=== PATIENT | female | born 1965 | race Caucasian/White ===

== ENCOUNTER 2018-02-08 12:05 | Inpatient (IN) ==
[2018-02-08] MEDS ORDERED: ALPRAZolam 0.25 MG TABLET PO PRN (19:50)
[2018-02-08] MEDS ORDERED: Sennosides/Docusate Sodium TABLET PO PRN (19:50)
[2018-02-08 20:56] LABS: INR 1.1; Prothrombin Time 12.3 Seconds (9.4-12.1)
[2018-02-08] MEDS: Vancomycin Oral Soln 125 MG/2.5 ML UDC PO SCH (21:42)
[2018-02-09] MEDS: *HR* Heparin 5,000 UNIT/ML VIAL SQ SCH ×2 (05:10→18:49)
[2018-02-09 05:52] LABS: Basophils % 0.3 %; Eosinophils % 0.5 %; Hematocrit 35.5 % (35.3-44.9); Hemoglobin 11.9 g/dL (11.5-15.4); Lymphocytes # 2.8 K/mcL (0.6-4.6); Mean Corpuscular HGB Conc 33.5 g/dL (31.6-35.5); Mean Corpuscular Hemoglobin 29.7 pg (28.0-33.3); Mean Corpuscular Volume 88.5 fL (83.0-100.0); Mean Platelet Volume 8.3 fL (9.4-12.4); Monocytes # 0.5 K/mcL (0.0-1.3); Monocytes % 5.8 %; Neutrophils # 5.1 K/mcL (1.6-8.9); Platelet Count 284 K/mcL (140-400); Red Blood Count 4.01 M/mcL (3.82-4.97); Red Cell Distribution Width 13.1 % (11.5-14.5); Segmented Neutrophils % 59.4 %
[2018-02-09 06:01] LABS: INR 1.1
[2018-02-09 06:04] LABS: Activated Partial Thrombo Time 29.1 Seconds (26.0-36.0)
[2018-02-09 06:10] LABS: BUN/Creatinine Ratio 31 (6-26); Blood Urea Nitrogen 15 mg/dL (6-20); Calcium 9.4 mg/dL (8.6-10.3); Carbon Dioxide 24 mEq/L (23-29); Chloride 103 mEq/L (98-107); Glucose 100 mg/dL (70-105); Osmolality,Calculated 285 (280-300); Potassium 3.4 mEq/L (3.5-5.1); Sodium 137 mEq/L (136-145); eGFR For Non-African Americans > 60 (> 60)
[2018-02-09] MEDS: Vancomycin Oral Soln 125 MG/2.5 ML UDC PO SCH ×4 (09:47→20:37)
--- NOTE | 2018-02-09 15:47 | Internal Med History&Physical ---
Date of Encounter: 02/09/18 Time of Encounter: 15:45 Assessment and Plan (1) SAH (subarachnoid hemorrhage) Current visit: Yes Status: Acute PT , OT and ST to eval and treat. will follow progress. f/u with neuro as scheduled. (2) DVT prophylaxis Current visit: Yes Status: Acute continue heparin Internal Medicine - H&P: HPI Admitted From: Hospital to Hospital Transfer Plans for Post Hospital Care: Home History of present illness: Ms. Karimi is a 52 year old female admitted to inpatient rehab unit s/p subarachnoid hemorrhage s/p coiling. She woke up from a nap on 01/14 with worst RODRIGUEZ of life. had confusion, nausea and photophobia, went to [place] ED on 01/[address] showed a SAH bleed-intra axial intra ventricular. then transfered to [facility]. underwent coiling procedure on 01/18. 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 participating well with therapy. kaylee to be removed on 02/13. f/u with Dr Andrews (neurology) smoker of 39 pack years. denies RODRIGUEZ, fever, chills, NVD, SOB or chest pain. no change in vision. has delayed response to questions. Past Med Surg Social Fam HX - Past Medical History Medical history: diabetes, hypertension Additional medical history: freq UTI's, ruptured aneurysm, subaracnoid hemorrhage Psychiatric history: anxiety, depression - Past Surgical History Surgical History: Additional surgical history: wisdom teeth, brain surgery - Social History Smoking Status: Current every day smoker Packs per day: 1 Smokeless Tobacco Status: Yes Alcohol use: none Drug use: none - Family History Mother Adopted: No Family Member Ethnicity: Non- Living Status: Still Living Hx Family Cardiac Disorders: Yes (HTN) Hx Family Respiratory Disorders: No Hx Family Cancer: No Hx Family GI Disorders: No Hx Family Genitourinary Disorders: No Hx Family Endocrine Disorder: Yes (DM) Hx Family Musculoskeletal Disorders: No Hx Family Neuromuscular Disorders: No Hx Family Neurologic Disorders: No Hx Family HEENT Disorders: No Hx Family Autoimmune Disorders: No Hx Family Reproductive Disorders: No Hx Family Psychosocial Disorders: Yes (Bipolar, depression) Hx Family Medical Disorders: No Father Adopted: No Family Member Ethnicity: Non- Hx Family Cardiac Disorders: Yes (HTN, heart disease) Hx Family Respiratory Disorders: No Hx Family Cancer: Yes (Colon cancer) Hx Family GI Disorders: No Hx Family Genitourinary Disorders: Yes (Kidney Disease) Hx Family Endocrine Disorder: No Hx Family Musculoskeletal Disorders: No Hx Family Neuromuscular Disorders: No Hx Family Neurologic Disorders: No Hx Family HEENT Disorders: No Hx Family Autoimmune Disorders: No Hx Family Reproductive Disorders: No Hx Family Psychosocial Disorders: No Hx Family Medical Disorders: No Internal Medicine - H&P: Meds ALPRAZolam [Xanax 0.25 MG Tablet] 0.25 mg PO TID PRN 02/08/18 [History] Sennosides/Docusate Sodium [Senna-S Tablet] 1 each PO BID 02/08/18 [History] Venlafaxine [Effexor] 75 mg PO BID 02/08/18 [History] 3 Allergy/AdvReac Type Severity Reaction Status Date / Time bee venom protein (honey bee) AdvReac See Verified 02/08/18 19:48 Comments Sulfa (Sulfonamide AdvReac See Verified 02/08/18 19:48 Antibiotics) Comments All Systems PM: A 10-system review of systems was performed and is negative for pertinent findings except as documented above in the HPI. - Constitutional Constitutional: no chills, no fever(s), no night sweats - EENT Eyes: no change in vision, no discharge, no pain, no photophobia Ears: no ear discharge, no ear pain, no tinnitus Nose, mouth and throat: no dysphagia, no nasal discharge, no neck pain, no sore throat - Cardiovascular Cardiovascular ROS IM: no chest pain, no diaphoresis, no dyspnea, no lightheadedness, no palpitations, no syncope - Respiratory Respiratory: no cough, no dyspnea, no wheezing, no excessive phlegm production - Gastrointestinal Gastrointestinal: no abdominal pain, no diarrhea, no hematemesis, no hematochezia, no melena, no nausea, no vomiting - Genitourinary Genitourinary: no change in urinary stream, no dysuria, no flank pain, no hematuria - Musculoskeletal Musculoskeletal ROS IM: no numbness, no tingling - Integumentary Integumentary IM: no rash, no unusual bruising - Neurological Neurological ROS: no confusion, no convulsions, no focal weakness, no numbness, no tingling, no tremor(s) - Hematologic/Lymphatic Hematologic/Lymphatic: no easy bruising - Constitutional Vitals: Temp Pulse Resp BP Pulse Ox 98.2 F 74 16 120/72 95 02/09/18 12:00 02/09/18 12:00 02/09/18 12:00 02/09/18 12:00 02/09/18 12:00 General appearance: Present: A&O X 2, pleasant Exam: delayed responses to questions. - Head Head exam: Present: atraumatic, normocephalic - Eye Eye exam: Present: PERRL, conjuntiva pink, sclera anicteric Pupils: Present: PERRL - Neck Neck exam general surgery: Present: supple, trachea midline. Absent: lymphadenopathy - Respiratory Respiratory exam: Present: CTAB. Absent: accessory muscle use, rales, rhonchi, wheezes - Cardiovascular Cardiovascular exam: Present: RRR, +S1, +S2. Absent: diastolic murmur, gallop, rubs, systolic murmur - GI/Abdominal GI/Abdominal exam: Present: normal bowel sounds, soft, no peritoneal signs. Absent: distended, tenderness - Extremities Exam Extremities exam: Present: warm, radial pulses palpable and symmetrical. Absent : calf tenderness, cyanotic, pedal edema Additional comments: left lateral lean, strength 5/5 right and and 4/5 left hand, not raising left shoulder, states she is tired. LLE unable to move with RLE strength 3/5. able to perform wrist flexion and extension BUE - Incison Comments: incisions with kaylee to scalp, no drainage. - Neurological Exam Neurological exam: Present: CN II-XII intact, oriented X3, no focal deficits. Absent: pronater drift, facial droop, speech deficit - Skin Skin exam: Present: dry, intact Internal Med - H&P Results - Labs CBC & Chem 7: 02/09/18 05:05 02/09/18 05:05 Labs: Short CBC 02/09/18 Range/Units 05:05 WBC 8.6 (4.3-11.1) K/mcL Hgb 11.9 (11.5-15.4) g/dL Hct 35.5 (35.3-44.9) % Plt Count 284 (140-400) K/mcL Neutrophils # 5.1 (1.6-8.9) K/mcL BMP 02/09/18 05:05 Sodium 137 Potassium 3.4 L Chloride 103 Carbon Dioxide 24 BUN 15 Creatinine 0.48 L Glucose 100 Calcium 9.4 - VTE Documentation of Mechanical Device: Graduated compression elastic hosiery
[2018-02-10] MEDS: *HR* Heparin 5,000 UNIT/ML VIAL SQ SCH ×2 (05:52→17:13)
[2018-02-10] MEDS: Vancomycin Oral Soln 125 MG/2.5 ML UDC PO SCH ×4 (10:01→20:42)
--- NOTE | 2018-02-10 15:25 | Internal Med Progress Note ---
Date of Encounter: 02/10/18 Time of Encounter: 15:22 - Assessment and plan (1) SAH (subarachnoid hemorrhage) Current Visit: Yes Status: Acute Assessment and plan: She has a follow-up apparently on February 13 and will discuss removal of kaylee either now or at that time, with nursing. We will continue therapies as planned and will await further assessment by physical medicine. (2) Anxiety and depression Current Visit: Yes Status: Acute Assessment and plan: We will continue current medications. (3) C. difficile colitis Current Visit: Yes Status: Acute Assessment and plan: Doing better as per history. Will continue to follow. - Subjective Interval history: Patient is still an unusual affect and easily distracted, reading a newspaper anicteric times ignores me. She does not have any acute problems and is enjoying therapy. She is feeling like her bowel movements are becoming more formed and she denies abdominal pain or other change in bowel habits. She has no urinary symptoms or problems. Patient has no complaint of chest discomfort, dyspnea, orthopnea, palpitations, nausea or vomiting, constipation or diarrhea, other changes in bowel habits, difficulty with urination, rash or itching, or other new complaints, except as mentioned above. Review of systems is otherwise negative. - Constitutional Vitals: Temp Pulse Resp BP Pulse Ox 98.6 F 76 16 138/76 93 02/10/18 07:11 02/10/18 07:11 02/10/18 07:11 02/10/18 07:11 02/10/18 07:11 General appearance: Present: A&O X 2, pleasant Exam: Examination: (Except as mentioned above): General: In no apparent distress. Alert and oriented 3. Nondiaphoretic. Head: Atraumatic and normocephalic. I see no facial asymmetry, at this time. Respiratory: No use of accessory muscles. Lungs are clear throughout. Normal airflow. Cardiovascular: Regular rate and rhythm without murmur appreciated. Abdomen: Bowel sounds are normal. No hepatosplenomegaly mass or tenderness appreciated. Obese and therefore difficult to palpate deeply. Patient is examined upright in chair and this also limits exam. Extremities: No cyanosis clubbing or edema. Neurologic: She still has minimal if any left upper extremity weakness. She states that sensation is normal lower extremity but she has dense paresis of lower extremity. I still wonder if this is functional or at least partially so. Skin: Warm and non-diaphoretic with no new lesions noted. She still has kaylee in that her scalp and tells me that these will be removed on . Internal Medicine: Result - Labs CBC & Chem 7: 02/09/18 05:05 02/09/18 05:05 - ABG Interpretation ABG results: PT/INR, D-dimer PT 12.0 Seconds (9.4-12.1) 02/09/18 05:05 - VTE Documentation of Mechanical Device: Graduated compression elastic hosiery Consult Discharge Plan - Plan Referrals: Tobin Granado MD [Primary Care Provider] - Samantha Recinos [Family Provider] -
[2018-02-11] MEDS: *HR* Heparin 5,000 UNIT/ML VIAL SQ SCH ×2 (04:53→17:39)
[2018-02-11 05:45] LABS: BUN/Creatinine Ratio 25 (6-26); Blood Urea Nitrogen 11 mg/dL (6-20); Calcium 9.4 mg/dL (8.6-10.3); Carbon Dioxide 24 mEq/L (23-29); Chloride 103 mEq/L (98-107); Glucose 114 mg/dL (70-105); Osmolality,Calculated 282 (280-300); Potassium 3.8 mEq/L (3.5-5.1); Sodium 136 mEq/L (136-145); eGFR For Non-African Americans > 60 (> 60)
[2018-02-11 07:27] VITALS: BP 118/60
[2018-02-11] MEDS: Vancomycin Oral Soln 125 MG/2.5 ML UDC PO SCH ×3 (08:28→17:39)
[2018-02-11] MEDS ORDERED: ALPRAZolam 0.25 MG TABLET PO SCH (09:00)
--- NOTE | 2018-02-11 09:08 | Internal Med Progress Note ---
Date of Encounter: 02/11/18 Time of Encounter: 09:06 - Assessment and plan (1) Anxiety and depression Current Visit: Yes Status: Chronic Assessment and plan: stable takes Xanax regular dose has flat affect . stable no thoughts of hurting herself or killing someone else stable (2) C. difficile colitis Current Visit: Yes Status: Acute Assessment and plan: on oral Vanc stool seems to be getting firm . Will follow (3) SAH (subarachnoid hemorrhage) Current Visit: Yes Status: Acute Assessment and plan: Bleeding intra cranial s/p evacuation subarchnoid stable no new change in mental status or neurologically . Getting her PT - Subjective Interval history: Cross coverage seems to be doing fine still has some what loose stools no fever or chills denines any other complains has flat affect - Constitutional Vitals: Temp Pulse Resp BP Pulse Ox 98.4 F 89 15 118/60 95 02/11/18 07:26 02/11/18 07:26 02/11/18 07:26 02/11/18 07:26 02/11/18 07:26 General appearance: Present: A&O X 2, pleasant, answers questions appropriately - Head Additional comments: surgical kaylee stable - Eye Eye exam: Present: EOMI, PERRL Pupils: Present: PERRL - Neck Neck exam general surgery: Present: supple. Absent: tenderness, nuchal rigidity - Respiratory Respiratory exam: Present: CTAB. Absent: chest wall tenderness, decreased breath sounds, respiratory distress, rhonchi, stridor, wheezes, tachypnea - Cardiovascular Cardiovascular exam: Present: RRR, +S1, +S2. Absent: clicks, distant heart sounds, irregular rhythm, JVD - GI/Abdominal GI/Abdominal exam: Present: normal bowel sounds, soft. Absent: distended, firm , guarding, rebound, rigid, tenderness, no peritoneal signs - Extremities Exam Extremities exam: Absent: mottling, pedal edema, tenderness - Incison Incision: Present: clean and dry, intact. Absent: red, swollen, inflamed, erythema - Neurological Exam Neurological exam: Present: alert, CN II-XII intact. Absent: facial droop, speech deficit Additional comments: there is some decrease in her strength on left side but able to move both limbs upper and lower some what flat affect but answers questions appropriately Internal Medicine: Result - Labs CBC & Chem 7: 02/09/18 05:05 02/11/18 04:55 Labs: BMP 02/11/18 04:55 Sodium 136 Potassium 3.8 Chloride 103 Carbon Dioxide 24 BUN 11 Creatinine 0.44 L Glucose 114 H Calcium 9.4 - ABG Interpretation ABG results: PT/INR, D-dimer PT 12.0 Seconds (9.4-12.1) 02/09/18 05:05 - VTE Documentation of Mechanical Device: Graduated compression elastic hosiery Consult Discharge Plan - Plan Referrals: Tobin Granado MD [Primary Care Provider] - Samantha Recinos [Family Provider] -
[2018-02-11] MEDS ORDERED: Acetaminophen 325 MG TABLET PO PRN (09:28)
[2018-02-11] MEDS ORDERED: ALPRAZolam 0.25 MG TABLET PO PRN (12:18)
--- NOTE | 2018-02-12 09:01 | Discharge Summary ---
Orders not resulted at time of discharge: Pending orders 02/13/18 04:00 Activated Partial Thrombo Time [COAG] MO Basic Metabolic Panel MO Complete Blood Count [HEME] MO 02/20/18 04:00 Activated Partial Thrombo Time [COAG] MO Basic Metabolic Panel MO Complete Blood Count [HEME] MO 02/27/18 04:00 Activated Partial Thrombo Time [COAG] MO Basic Metabolic Panel MO Complete Blood Count [HEME] MO 03/06/18 04:00 Activated Partial Thrombo Time [COAG] MO Basic Metabolic Panel MO Complete Blood Count [HEME] MO 03/13/18 04:00 Activated Partial Thrombo Time [COAG] MO Basic Metabolic Panel MO Complete Blood Count [HEME] MO Date of Encounter: 02/12/18 (pt left ta but note was written next day ) Time of Encounter: 08:59 - Discharge Diagnosis (1) Anxiety and depression Priority: Secondary Status: Chronic Comments: stable on meds (2) C. difficile colitis Priority: Secondary Status: Acute Comments: on oral meds stable and improving (3) SAH (subarachnoid hemorrhage) Priority: Secondary Status: Acute Comments: ICH, stable (4) DVT (deep venous thrombosis) Priority: Primary Status: Acute Comments: Pt developed acute DVT left Popletial and tibial veins. Due to recent Intra cranial bleed and coil placmemnt , anticoagulation could not be started . She was transferred to [facility] for placement of IVC. if she comes back by 8 PM her admission will continue otherwise she will be discharged . Pt was aware of this new development Qualifiers: DVT location: lower extremity Affected thrombotic vein of extremity: popliteal Qualified Code(s): I82.431 - Acute embolism and thrombosis of right popliteal vein Hospital course: Ms. Karimi is a 52 year old female she started complaining of pain in her left leg and calf , no swelling . Doppler showed acute DVT . She denies any fever or chills no SOB . she was actively getting her PT for her ICH. she was transferred to [place] for IVC filter placement due to contraindication for anticoagulation. At the time of trasnfer she was stable without any complains of SOB or chest pain - Time Spent with Patient Total time spent providing and/or coordinating discharge services: - Discharge Medications Home Medications: ALPRAZolam [Xanax 0.25 MG Tablet] 0.25 mg PO TID PRN 02/08/18 [History] Sennosides/Docusate Sodium [Senna-S Tablet] 1 each PO BID 02/08/18 [History] Venlafaxine [Effexor] 75 mg PO BID 02/08/18 [History] Allergies/Adverse Reactions: 3 Allergy/AdvReac Type Severity Reaction Status Date / Time bee venom protein (honey bee) AdvReac See Verified 02/08/18 19:48 Comments Sulfa (Sulfonamide AdvReac See Verified 02/08/18 19:48 Antibiotics) Comments Date of admission: 02/08/18 19:04 Primary care physician: Tobin Granado MD Consults: 02/08/18 19:51 Consult to Occupational Therapy [CONS] Routine Comment: Evaluate, develop and implement POC Reason for Consult: s/p cva Does patient have active BEDREST order?: No Is patient medically & hemodynamically stable?: Yes Patient assessed for mobility or mobilized this visit?: Yes Consult to Physical Medicine/Rehab [CONS] Routine Reason for Consult: s/p cva Call Completed: Yes Consult to Physical Therapy [CONS] Routine Comment: Evaluate, develop and implement POC Reason for Consult: s/p cva Does patient have active BEDREST order?: No Is patient medically & hemodynamically stable?: Yes Patient assessed for mobility or mobilized this visit?: Yes Consult to Recreational Therapy [CONS] Routine Comment: Evaluate, develop and implement POC Consult to [employer] [CONS] Routine Reason for SW Consult: s/p cva. d/c follow up needed. Consult to Speech Therapy [CONS] Routine Comment: Evaluate, develop and implement POC Reason for Consult: s/p cva Call Completed: Yes Discharging clinician: Belkis Medel Anticipated date of discharge: 02/12/18 - Constitutional Vitals: Temp Pulse Resp BP Pulse Ox 98.4 F 89 15 118/60 95 02/11/18 07:26 02/11/18 07:26 02/11/18 07:26 02/11/18 07:26 02/11/18 07:26 General appearance: Present: A&O X 2, pleasant, answers questions appropriately - Head Additional comments: kaylee on incision please note that her examination is from before her departure and discharge to [facility] . Documentation was done later - Eye Eye exam: Present: EOMI, PERRL. Absent: scleral icterus, conjuntiva pink Pupils: Present: PERRL - Neck Neck exam general surgery: Absent: tenderness, nuchal rigidity - Respiratory Respiratory exam: Present: CTAB. Absent: respiratory distress, stridor, wheezes - Cardiovascular Cardiovascular exam: Present: RRR, +S1, +S2. Absent: JVD - GI/Abdominal GI/Abdominal exam: Present: normal bowel sounds, soft. Absent: distended, rebound, rigid - Extremities Exam Extremities exam: Present: tenderness Additional comments: left calf and leg no swelling or redness - Neurological Exam Neurological exam: Present: altered, CN II-XII intact, oriented X3. Absent: facial droop, speech deficit Additional comments: flat affect. mild weakness on left side otherwsie no clear focal deficit noted - Patient Status Disposition: Transfer Hospital Swing Bed Functional capacity at discharge: bed bound Overall status at discharge: other (tranfered to [facility]) - Discharge Instructions Follow Up With: Tobin Granado MD [Primary Care Provider] - Samantha Recinos [Family Provider] - Additional Instructions: pt was discharged to [facility] - Diet and Activity Activity: other Diet: regular diet - VTE Documentation of Mechanical Device: Graduated compression elastic hosiery
== END 2018-02-11 19:37 | disposition other institution (70) | DRG 57 ==
LOC: INPGRE 19:04

== ENCOUNTER 2018-02-15 15:03 | Inpatient (IN) ==
--- NOTE | 2018-02-16 13:03 | Internal Med History&Physical ---
Date of Encounter: 02/16/18 Time of Encounter: 12:52 Assessment and Plan (1) SAH (subarachnoid hemorrhage) Current visit: No Status: Acute Patient is readmitted to this facility for deconditioning secondary to subarachnoid hemorrhage. Patient was transferred from this facility to [facility] for evaluation and treatment after she was found to have a left leg DVT and was going to require anticoagulation. Patient has returned to this facility after being started on Xerelto. Patient's neurological exam appears unchanged since her last admission here. Patient continues to have left upper arm paresis, showing 4/5 muscle strength, which was more prominent proximal. Patient's left leg remains flaccid with 0/5 muscle strength and patient with complaints of a lower sensation to the entire leg, primarily to sharp sensation. Patient is to be reevaluated by physical therapy with recommendations. We will continue with current pain of care and medications. Patient currently denies any discomforts. (2) Anxiety and depression Current visit: No Status: Chronic Patient continues to have a flat affect during interview, but was appropriate with all answers. Patient also noted to have poor attention span been easily distracted during exam. We will continue on her current medications. (3) DVT (deep venous thrombosis) Current visit: Yes Status: Acute Left leg remains slightly swollen. No tenderness. Patient continues on Xarelto at this time. Patient denies any dyspnea or chest discomfort Qualifiers: DVT location: lower extremity Affected thrombotic vein of extremity: popliteal Chronicity: acute Laterality: left Qualified Code(s): I82.432 - Acute embolism and thrombosis of left popliteal vein (4) Pulmonary congestion Current visit: Yes Status: Acute Lungs are clear throughout upper kaplan but noted to have fine basilar rales posteriorly. Most likely from an activity. Patient will be started on a incentive spirometer and mobilized by physical therapy. Patient denies any dyspnea or productive cough. Internal Medicine - H&P: HPI Chief complaint: SAH Admitted From: Intrahospital Transfer Plans for Post Hospital Care: Home History of present illness: Ms. Karimi is a 52 year old female admitted to inpatient rehab unit s/p subarachnoid hemorrhage s/p coiling. She woke up from a nap on 01/14 with worst RODRIGUEZ of life. had confusion, nausea and photophobia, went to [facility] ED on 01/[address] showed a SAH bleed-intra axial intra ventricular. then transfered to [facility]. underwent coiling procedure on 01/18. 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 Patient was then transferred to this facility for rehab due to deconditioning and LLE plegia secondary to her SAH. Patient was progressing well with physical therapy, but it was noted that she developed left leg swelling. Venous Doppler showed that she had a DVT to the left leg. Due to her recent subarachnoid hemorrhage and the need for anticoagulation she was transferred to [facility] for further evaluation and treatment per neurosurgery. Patient was evaluated and started on Xarelto while at [place]. Patient has returned to this facility for further rehabilitation. Patient continues to show a deficit to the left lower extremity which is flaccid and patient states a mild decrease sensitivity to the entire leg. Also has paresis to the LUE with proximal flex/ext at 4/5, but distal strength is near normal with hand grasp and extension. Noted slight tremor to LUE, which she states she has had since her SAH. Patient continues to have Holly catheter in place with reports from [place] that patient experienced urinary retention and was not able to have her Holly catheter discontinued. Patient continues to have a flat type affect during interview, but was able to answer all questions appropriately. Hx of depression. Patient denies any discomforts or shortness of breath. Patient denies any visual changes. Recent Hx of C. diff, but denies any diarrhea. Past Med Surg Social Fam HX - Past Medical History Medical history: diabetes, hypertension Additional medical history: freq UTI's, ruptured aneurysm, subaracnoid hemorrhage Psychiatric history: anxiety, depression - Past Surgical History Surgical History: Additional surgical history: wisdom teeth, brain surgery - Social History Smoking Status: Current every day smoker Smokeless Tobacco Status: Yes Alcohol use: none Drug use: none - Family History Mother Adopted: No Family Member Ethnicity: Non- Living Status: Still Living Hx Family Cardiac Disorders: Yes (HTN) Hx Family Respiratory Disorders: No Hx Family Cancer: No Hx Family GI Disorders: No Hx Family Endocrine Disorder: Yes (DM) Hx Family Neuromuscular Disorders: No Hx Family Neurologic Disorders: No Hx Family HEENT Disorders: No Hx Family Autoimmune Disorders: No Father Adopted: No Family Member Ethnicity: Non- Hx Family Cardiac Disorders: Yes (HTN, heart disease) Hx Family Respiratory Disorders: No Hx Family Cancer: Yes (Colon cancer) Hx Family GI Disorders: No Hx Family Endocrine Disorder: No Hx Family Neuromuscular Disorders: No Hx Family Neurologic Disorders: No Hx Family HEENT Disorders: No Hx Family Autoimmune Disorders: No Internal Medicine - H&P: Meds ALPRAZolam [Xanax 0.25 MG Tablet] 0.25 mg PO TID PRN 02/08/18 [History] Sennosides/Docusate Sodium [Senna-S Tablet] 1 each PO BID 02/08/18 [History] Venlafaxine [Effexor] 75 mg PO BID 02/08/18 [History] 3 Allergy/AdvReac Type Severity Reaction Status Date / Time bee venom protein (honey bee) AdvReac See Verified 02/08/18 19:48 Comments Sulfa (Sulfonamide AdvReac See Verified 02/08/18 19:48 Antibiotics) Comments All Systems PM: A 10-system review of systems was performed and is negative for pertinent findings except as documented above in the HPI. - Constitutional Constitutional: as per HPI, no chills, no fever(s), no night sweats - EENT Eyes: no change in vision, no discharge, no pain, no photophobia Ears: no ear discharge, no ear pain, no tinnitus Nose, mouth and throat: no dysphagia, no nasal discharge, no neck pain, no sore throat - Cardiovascular Cardiovascular ROS IM: no chest pain, no diaphoresis, no dyspnea, no lightheadedness, no palpitations, no syncope - Respiratory Respiratory: as per HPI, no cough, no dyspnea, no wheezing, no excessive phlegm production - Gastrointestinal Gastrointestinal: no abdominal pain, no diarrhea, no hematemesis, no hematochezia, no melena, no nausea, no vomiting - Genitourinary Genitourinary: no change in urinary stream, no dysuria, no flank pain, no hematuria - Musculoskeletal Musculoskeletal ROS IM: no numbness, no tingling - Integumentary Integumentary IM: no rash, no unusual bruising - Neurological Neurological ROS: as per HPI, numbness, paresthesias, weakness, no confusion, no convulsions, no focal weakness, no tingling, no tremor(s) - Psychiatric Psychiatric: as per HPI - Hematologic/Lymphatic Hematologic/Lymphatic: no easy bruising - Constitutional General appearance: Present: A&O X 3, pleasant, answers questions appropriately - Head Head exam: Present: atraumatic, normocephalic - Eye Eye exam: Present: PERRL, conjuntiva pink, sclera anicteric Pupils: Present: PERRL - Neck Neck exam general surgery: Present: supple, trachea midline. Absent: lymphadenopathy - Respiratory Respiratory exam: Present: rales Additional comments: Patient noted to have fine posterior basilar rales heard, otherwise her lungs were clear to auscultation. History effort appears relaxed while at rest. No productive cough. - Cardiovascular Cardiovascular exam: Present: RRR, +S1, +S2. Absent: diastolic murmur, gallop, rubs, systolic murmur - GI/Abdominal GI/Abdominal exam: Present: normal bowel sounds, soft, no peritoneal signs. Absent: distended, tenderness - Additional comments: Holly catheter in place with clear yellow urine received - Extremities Exam Extremities exam: Present: warm, radial pulses palpable and symmetrical. Absent : calf tenderness, cyanotic, pedal edema Additional comments: left leg appears slight swollen with nonpitting edema - Neurological Exam Neurological exam: Present: CN II-XII intact, oriented X3. Absent: pronater drift, facial droop, speech deficit Additional comments: LUE with MS 4/5 on flex/ext and noted tremors. Noted increased strength on LUE distally, but remains +4/5. LLE with 0/5 MS for ext/flex at proximally and distally. Decreased sensation to the entire left leg with sharp sensation with no change per dermatone. - Skin Skin exam: Present: dry, intact
[2018-02-16] MEDS: Sennosides/Docusate Sodium TABLET PO SCH (20:52)
[2018-02-16] MEDS: *HR* Rivaroxaban 15 MG TABLET PO SCH (20:52)
[2018-02-17 05:24] LABS: Basophils % 0.3 %; Eosinophils # 0.1 K/mcL (0.0-0.6); Eosinophils % 0.5 %; Hematocrit 32.3 % (35.3-44.9); Hemoglobin 10.9 g/dL (11.5-15.4); Immature Granulocytes % 1.1 % (0-4); Lymphocytes # 1.7 K/mcL (0.6-4.6); Lymphocytes % 14.1 %; Mean Corpuscular HGB Conc 33.7 g/dL (31.6-35.5); Mean Corpuscular Hemoglobin 30.2 pg (28.0-33.3); Mean Corpuscular Volume 89.5 fL (83.0-100.0); Mean Platelet Volume 8.6 fL (9.4-12.4); Monocytes # 1.2 K/mcL (0.0-1.3); Monocytes % 9.8 %; Platelet Count 286 K/mcL (140-400); Red Blood Count 3.61 M/mcL (3.82-4.97); Red Cell Distribution Width 13.6 % (11.5-14.5); Segmented Neutrophils % 74.2 %
[2018-02-17 05:28] LABS: Neutrophils # 9.1 K/mcL (1.6-8.9)
[2018-02-17 05:33] LABS: INR 1.7; Prothrombin Time 19.7 Seconds (9.4-12.1)
[2018-02-17 05:46] LABS: Alanine Aminotransferase 37 Units/L (7-52); Albumin 3.6 g/dL (3.5-5.7); Alkaline Phosphatase 101 Units/L (34-104); Aspartate Amino Transferase 20 Units/L (13-39); BUN/Creatinine Ratio 21 (6-26); Bilirubin,Total 0.8 mg/dL (0.3-1.0); Blood Urea Nitrogen 12 mg/dL (6-20); Calcium 9.6 mg/dL (8.6-10.3); Carbon Dioxide 24 mEq/L (23-29); Chloride 101 mEq/L (98-107); Globulin 3.5 g/dL (2.4-3.5); Glucose 122 mg/dL (70-105); Magnesium 2.2 mg/dL (1.6-2.6); Osmolality,Calculated 285 (280-300); Potassium 3.7 mEq/L (3.5-5.1); Sodium 137 mEq/L (136-145); Total Protein 7.1 g/dL (6.4-8.9); eGFR For Non-African Americans > 60 (> 60)
[2018-02-17] MEDS: *HR* Rivaroxaban 15 MG TABLET PO SCH ×2 (09:39→20:34)
[2018-02-17] MEDS: Sennosides/Docusate Sodium TABLET PO SCH ×2 (09:40→20:35)
[2018-02-17] MEDS: ALPRAZolam 0.25 MG TABLET PO PRN (10:04)
--- NOTE | 2018-02-17 10:40 | Internal Med Progress Note ---
Date of Encounter: 02/17/18 Time of Encounter: 10:37 - Assessment and plan (1) SAH (subarachnoid hemorrhage) Current Visit: Yes Status: Acute Assessment and plan: No acute neurological changes noted in exam. Patient continues to have mild weakness to left upper extremity and left leg remains flaccid with decreased sensation. Patient also noted to have some hesitation when answering complex questions and difficulty following complex directions during exam. Patient is being evaluated by physical therapy today with recommendations pending. Craniotomy site appears be healing well. We will continue with current medications which include Xarelto which has been approved per neurosurgery while at [facility]. (2) Anxiety and depression Current Visit: No Status: Chronic Assessment and plan: No acute issues. Patient continues to have a flat a fact at times during answers to complex questions. Patient denies any issues (3) DVT (deep venous thrombosis) Current Visit: Yes Status: Acute Assessment and plan: No acute issues. Left leg remains slightly swollen in comparison to right. Patient continues on anticoagulation. We will continue to mobilize during Qualifiers: DVT location: lower extremity Affected thrombotic vein of extremity: popliteal Chronicity: acute Laterality: left Qualified Code(s): I82.432 - Acute embolism and thrombosis of left popliteal vein (4) Pulmonary congestion Current Visit: Yes Status: Acute Assessment and plan: Patient continues to have fine posterior bibasilar rales but otherwise are clear. We will continue to mobilize. We will continue with incentive spirometer - Time Spent With Patient less than 15 minutes - Subjective Interval history: Patient appears relaxed and currently denies any acute neurological changes or shortness of breath. Patient does complain of slight discomfort to her coccyx from sitting and has requested pain medication. - Constitutional Vitals: Temp Pulse Resp BP Pulse Ox 98.7 F 87 16 108/68 95 02/17/18 07:10 02/17/18 07:10 02/17/18 07:10 02/17/18 07:10 02/17/18 07:10 General appearance: Present: A&O X 3, pleasant, answers questions appropriately Exam: Patient noted to have hesitation during answers on complex questioning and noted some difficulty on following complexed commands. Patient is appropriate with conversation and oriented 3. - Head Head exam: Present: atraumatic, normocephalic Additional comments: Right sided craniotomy incision appears dry and intact and healing well - Eye Eye exam: Present: PERRL, conjuntiva pink, sclera anicteric Pupils: Present: PERRL - Neck Neck exam general surgery: Present: supple, trachea midline. Absent: lymphadenopathy - Respiratory Respiratory exam: Present: CTAB. Absent: accessory muscle use, rales, rhonchi, wheezes Additional comments: Lungs remain clear to auscultation to upper kaplan and fine posterior bibasilar rales. Respiratory effort appears relaxed - Cardiovascular Cardiovascular exam: Present: RRR, +S1, +S2. Absent: diastolic murmur, gallop, rubs, systolic murmur - GI/Abdominal GI/Abdominal exam: Present: normal bowel sounds, soft, no peritoneal signs. Absent: distended, tenderness - Extremities Exam Extremities exam: Present: warm, radial pulses palpable and symmetrical. Absent : calf tenderness, cyanotic, pedal edema - Neurological Exam Neurological exam: Present: CN II-XII intact, oriented X3, no focal deficits. Absent: pronater drift, facial droop, speech deficit Additional comments: Patient continues to have left-sided deficits with left upper extremity having a muscle strength of +4/5 is more prominent proximal has for hand grasp appears fairly strong. Noted continued slight tremor to left upper extremity. Left leg remains flaccid with 0/5 muscle strength. Patient indicates decreased sensation to left leg with no change per dermatome. Patient's decrease in sensation is mostly to sharp sensation. Otherwise no focal deficit noted - Skin Skin exam: Present: dry, intact Internal Medicine: Result - Labs CBC & Chem 7: 02/17/18 04:58 02/17/18 04:58 Labs: Short CBC 02/17/18 Range/Units 04:58 WBC 12.2 H (4.3-11.1) K/mcL Hgb 10.9 L (11.5-15.4) g/dL Hct 32.3 L (35.3-44.9) % Plt Count 286 (140-400) K/mcL Neutrophils # 9.1 H (1.6-8.9) K/mcL BMP 02/17/18 04:58 Sodium 137 Potassium 3.7 Chloride 101 Carbon Dioxide 24 BUN 12 Creatinine 0.58 L Glucose 122 H Calcium 9.6 Liver Function 02/17/18 Range/Units 04:58 Total Bilirubin 0.8 (0.3-1.0) mg/dL AST 20 (13-39) Units/L ALT 37 (7-52) Units/L Alkaline Phosphatase 101 (34-104) Units/L Albumin 3.6 (3.5-5.7) g/dL - ABG Interpretation ABG results: PT/INR, D-dimer PT 19.7 Seconds (9.4-12.1) H 02/17/18 04:58 Consult Discharge Plan - Plan Referrals: Tobin Granado MD [Primary Care Provider] - Samantha Recinos [Family Provider] -
[2018-02-18] MEDS: *HR* Rivaroxaban 15 MG TABLET PO SCH ×2 (07:59→19:57)
[2018-02-18] MEDS: Sennosides/Docusate Sodium TABLET PO SCH ×2 (07:59→19:57)
--- NOTE | 2018-02-18 13:50 | Internal Med Progress Note ---
Date of Encounter: 02/18/18 Time of Encounter: 13:48 - Assessment and plan (1) SAH (subarachnoid hemorrhage) Current Visit: Yes Status: Acute Assessment and plan: Seems to be doing well but has improved only mildly from her left lower extremity standpoint. We will continue with therapy and therapy assessment for home-going as soon as she is stable. (2) DVT (deep venous thrombosis) Current Visit: Yes Status: Acute Assessment and plan: She is on anticoagulation, therapeutic, with Eliquis. Qualifiers: DVT location: lower extremity Affected thrombotic vein of extremity: popliteal Chronicity: acute Laterality: left Qualified Code(s): I82.432 - Acute embolism and thrombosis of left popliteal vein (3) Anxiety and depression Current Visit: No Status: Chronic Assessment and plan: On multiple medications and will continue as planned. (4) Neurogenic bladder Current Visit: Yes Status: Acute Assessment and plan: Thus far, is doing well with Urecholine and trial of catheter removal. Will follow. - Subjective Interval history: Patient without complaint. She asks about her incentive spirometry and I told her I would ask again about this. She also asks about a donut for her wheelchair. The physical therapist stated that she gave her a cushion but they do not have a definite. I informed the patient of same. She is doing well thus far without her catheter in place and we will check a post void residual. Patient has no complaint of chest discomfort, dyspnea, orthopnea, palpitations, nausea or vomiting, constipation or diarrhea, other changes in bowel habits, difficulty with urination, rash or itching, or other new complaints, except as mentioned above. Review of systems is otherwise negative. I discussed management of her care with nursing staff. - Constitutional Vitals: Temp Pulse Resp BP Pulse Ox 98.3 F 79 16 102/72 93 02/18/18 07:00 02/18/18 07:00 02/18/18 07:00 02/18/18 07:00 02/18/18 07:00 General appearance: Present: pleasant, answers questions appropriately Exam: Examination: (Except as mentioned above): General: In no apparent distress. Alert and oriented 3. Nondiaphoretic. Still with an unusual affect but more interactive than yesterday. Head: Atraumatic and normocephalic. Respiratory: No use of accessory muscles. Lungs are clear throughout. Normal airflow. Cardiovascular: Regular rate and rhythm without murmur appreciated. Abdomen: Bowel sounds are normal. No hepatosplenomegaly mass or tenderness appreciated. Obese and therefore difficult to palpate deeply. Extremities: No cyanosis clubbing or edema. Skin: Warm and non-diaphoretic with no new lesions noted. Internal Medicine: Result - Labs CBC & Chem 7: 02/17/18 04:58 02/17/18 04:58 - ABG Interpretation ABG results: PT/INR, D-dimer PT 19.7 Seconds (9.4-12.1) H 02/17/18 04:58 Consult Discharge Plan - Plan Referrals: Tobin Granado MD [Primary Care Provider] - Samantha Recinos [Family Provider] -
[2018-02-18] MEDS: ALPRAZolam 0.25 MG TABLET PO PRN (19:57)
[2018-02-19] MEDS: Sennosides/Docusate Sodium TABLET PO SCH (08:37)
[2018-02-19] MEDS: *HR* Rivaroxaban 15 MG TABLET PO SCH ×2 (08:37→19:59)
--- NOTE | 2018-02-19 09:17 | Internal Med Progress Note ---
Date of Encounter: 02/19/18 Time of Encounter: 09:17 - Assessment and plan (1) SAH (subarachnoid hemorrhage) Current Visit: Yes Status: Acute Assessment and plan: No new neuro deficits. Continue PT and OT. Will follow progress. Continues to have slight left upper extremity weakness and left lower extremity is flaccid. Follow up with neurologist as scheduled. (2) DVT prophylaxis Current Visit: Yes Status: Acute Assessment and plan: Continues xaralto. (3) Anxiety and depression Current Visit: Yes Status: Chronic Assessment and plan: Stable. Continue current medication. Will monitor. - Time Spent With Patient less than 15 minutes - Constitutional Vitals: Temp Pulse Resp BP Pulse Ox 97.9 F 74 16 125/79 96 02/19/18 07:00 02/19/18 07:00 02/19/18 07:00 02/19/18 07:00 02/19/18 07:00 General appearance: Present: A&O X 3, pleasant, answers questions appropriately - Head Head exam: Present: atraumatic, normocephalic - Eye Eye exam: Present: PERRL, conjuntiva pink, sclera anicteric Pupils: Present: PERRL - Neck Neck exam general surgery: Present: supple, trachea midline. Absent: lymphadenopathy - Respiratory Respiratory exam: Present: CTAB. Absent: accessory muscle use, rales, rhonchi, wheezes - Cardiovascular Cardiovascular exam: Present: RRR, +S1, +S2. Absent: diastolic murmur, gallop, rubs, systolic murmur - GI/Abdominal GI/Abdominal exam: Present: normal bowel sounds, soft, no peritoneal signs. Absent: distended, tenderness - Extremities Exam Extremities exam: Present: warm, radial pulses palpable and symmetrical. Absent : calf tenderness, cyanotic, pedal edema Additional comments: Left upper extremity weakness strength 4\5. Left lower extremity flaccid. - Neurological Exam Neurological exam: Present: CN II-XII intact, oriented X3, no focal deficits. Absent: pronater drift, facial droop, speech deficit - Skin Skin exam: Present: dry, intact Internal Medicine: Result - Labs CBC & Chem 7: 02/17/18 04:58 02/17/18 04:58 - ABG Interpretation ABG results: PT/INR, D-dimer PT 19.7 Seconds (9.4-12.1) H 02/17/18 04:58 Consult Discharge Plan - Plan Referrals: Tobin Granado MD [Primary Care Provider] - Samantha Recinos [Family Provider] -
[2018-02-19] MEDS ORDERED: Sennosides/Docusate Sodium TABLET PO PRN (14:55)
[2018-02-19] MEDS: ALPRAZolam 0.25 MG TABLET PO PRN (19:59)
[2018-02-20 07:22] LABS: Basophils % 0.5 %; Eosinophils # 0.1 K/mcL (0.0-0.6); Eosinophils % 0.9 %; Hematocrit 30.9 % (35.3-44.9); Hemoglobin 10.2 g/dL (11.5-15.4); Immature Granulocytes % 5.1 % (0-4); Lymphocytes # 1.8 K/mcL (0.6-4.6); Lymphocytes % 23.4 %; Mean Corpuscular Hemoglobin 29.1 pg (28.0-33.3); Mean Corpuscular Volume 88.3 fL (83.0-100.0); Mean Platelet Volume 8.4 fL (9.4-12.4); Monocytes # 0.6 K/mcL (0.0-1.3); Monocytes % 7.8 %; Neutrophils # 4.8 K/mcL (1.6-8.9); Platelet Count 368 K/mcL (140-400); Red Cell Distribution Width 13.3 % (11.5-14.5); Segmented Neutrophils % 62.3 %
[2018-02-20 07:36] LABS: Platelet Estimate Normal (Normal)
[2018-02-20 08:27] LABS: BUN/Creatinine Ratio 20 (6-26); Blood Urea Nitrogen 9 mg/dL (6-20); Calcium 9.2 mg/dL (8.6-10.3); Carbon Dioxide 26 mEq/L (23-29); Chloride 101 mEq/L (98-107); Glucose 107 mg/dL (70-105); Osmolality,Calculated 283 (280-300); Potassium 3.5 mEq/L (3.5-5.1); Sodium 137 mEq/L (136-145); eGFR For Non-African Americans > 60 (> 60)
[2018-02-20] MEDS: ALPRAZolam 0.25 MG TABLET PO PRN (09:31)
[2018-02-20] MEDS: *HR* Rivaroxaban 15 MG TABLET PO SCH ×2 (09:31→20:48)
--- NOTE | 2018-02-20 13:31 | Internal Med Progress Note ---
Date of Encounter: 02/20/18 Time of Encounter: 13:28 - Assessment and plan (1) SAH (subarachnoid hemorrhage) Current Visit: Yes Status: Acute Assessment and plan: No new neuro deficits. Continue PT and OT. Will follow progress. Continues to have slight left upper extremity weakness and left lower extremity weakness. Follow up with neurologist as scheduled. (2) DVT prophylaxis Current Visit: Yes Status: Acute Assessment and plan: Continues xaralto. (3) Anxiety and depression Current Visit: Yes Status: Chronic Assessment and plan: Stable. Continue current medication. Will monitor. - Time Spent With Patient less than 15 minutes - Subjective Interval history: Participating with therapy. Continues to be a max assist to sit to stand. Needs redirected often to stay on a task. Denies any issues including pain, shortness of breath, chest pain, headache, fever, chills, nausea vomiting and diarrhea. - Constitutional Vitals: Temp Pulse Resp BP Pulse Ox 97.9 F 73 20 123/70 94 02/20/18 06:53 02/20/18 06:53 02/20/18 06:53 02/20/18 06:53 02/20/18 06:53 General appearance: Present: A&O X 3, pleasant, no acute distress, answers questions appropriately - Head Head exam: Present: atraumatic, normocephalic - Eye Eye exam: Present: PERRL, conjuntiva pink, sclera anicteric Pupils: Present: PERRL - Neck Neck exam general surgery: Present: supple, trachea midline. Absent: lymphadenopathy - Respiratory Respiratory exam: Present: CTAB. Absent: accessory muscle use, rales, rhonchi, wheezes - Cardiovascular Cardiovascular exam: Present: RRR, +S1, +S2. Absent: diastolic murmur, gallop, rubs, systolic murmur - GI/Abdominal GI/Abdominal exam: Present: normal bowel sounds, soft, no peritoneal signs. Absent: distended, tenderness - Extremities Exam Extremities exam: Present: warm, radial pulses palpable and symmetrical. Absent : calf tenderness, cyanotic, pedal edema Additional comments: LLE weakness 1/5 - Neurological Exam Neurological exam: Present: CN II-XII intact, oriented X3, no focal deficits. Absent: pronater drift, facial droop, speech deficit - Skin Skin exam: Present: dry, intact Internal Medicine: Result - Labs CBC & Chem 7: 02/20/18 07:08 02/20/18 07:08 Labs: Short CBC 02/20/18 Range/Units 07:08 WBC 7.8 (4.3-11.1) K/mcL Hgb 10.2 L (11.5-15.4) g/dL Hct 30.9 L (35.3-44.9) % Plt Count 368 (140-400) K/mcL Neutrophils # 4.8 (1.6-8.9) K/mcL BMP 02/20/18 07:08 Sodium 137 Potassium 3.5 Chloride 101 Carbon Dioxide 26 BUN 9 Creatinine 0.44 L Glucose 107 H Calcium 9.2 - ABG Interpretation ABG results: PT/INR, D-dimer PT 19.7 Seconds (9.4-12.1) H 02/17/18 04:58 Consult Discharge Plan - Plan Referrals: Tobin Granado MD [Primary Care Provider] - Samantha Recinos [Family Provider] -
[2018-02-21 05:48] LABS: Basophils # 0.1 K/mcL (0.0-0.2); Basophils % 0.5 %; Eosinophils % 0.4 %; Hematocrit 31.7 % (35.3-44.9); Hemoglobin 10.4 g/dL (11.5-15.4); Immature Granulocytes % 7.1 % (0-4); Lymphocytes # 2.7 K/mcL (0.6-4.6); Mean Corpuscular HGB Conc 32.8 g/dL (31.6-35.5); Mean Corpuscular Hemoglobin 29.2 pg (28.0-33.3); Mean Platelet Volume 8.2 fL (9.4-12.4); Monocytes # 0.7 K/mcL (0.0-1.3); Monocytes % 6.8 %; Neutrophils # 5.8 K/mcL (1.6-8.9); Platelet Count 385 K/mcL (140-400); Red Blood Count 3.56 M/mcL (3.82-4.97); Red Cell Distribution Width 13.5 % (11.5-14.5); Segmented Neutrophils % 58.2 %
--- NOTE | 2018-02-21 08:39 | Internal Med Progress Note ---
Date of Encounter: 02/21/18 Time of Encounter: 08:37 - Assessment and plan (1) SAH (subarachnoid hemorrhage) Current Visit: Yes Status: Acute Assessment and plan: No new neuro deficits. Continue PT and OT. Will follow progress. Continues to have slight left upper extremity weakness and left lower extremity weakness. Follow up with neurologist as scheduled. (2) DVT prophylaxis Current Visit: Yes Status: Acute Assessment and plan: Continues xaralto. (3) Anxiety and depression Current Visit: Yes Status: Chronic Assessment and plan: Stable. Continue current medication. Will monitor. - Time Spent With Patient less than 15 minutes - Subjective Interval history: Participating with therapy. Continues to be a max assist to sit to stand. Needs redirected often to stay on a task. Denies any issues including pain, shortness of breath, chest pain, headache, fever, chills, nausea vomiting and diarrhea. c/o dysuria. tried to obtain specimen but inc of bladder. will order to cath for urine. - Constitutional Vitals: Temp Pulse Resp BP Pulse Ox 98.2 F 74 16 113/70 96 02/20/18 20:34 02/20/18 20:34 02/20/18 20:34 02/20/18 20:34 02/20/18 20:34 General appearance: Present: A&O X 3, pleasant, no acute distress, answers questions appropriately - Head Head exam: Present: atraumatic, normocephalic - Eye Eye exam: Present: PERRL, conjuntiva pink, sclera anicteric Pupils: Present: PERRL - Neck Neck exam general surgery: Present: supple, trachea midline. Absent: lymphadenopathy - Respiratory Respiratory exam: Present: CTAB. Absent: accessory muscle use, rales, rhonchi, wheezes - Cardiovascular Cardiovascular exam: Present: RRR, +S1, +S2. Absent: diastolic murmur, gallop, rubs, systolic murmur - GI/Abdominal GI/Abdominal exam: Present: normal bowel sounds, soft, no peritoneal signs. Absent: distended, tenderness - Extremities Exam Extremities exam: Present: warm, radial pulses palpable and symmetrical. Absent : calf tenderness, cyanotic, pedal edema Additional comments: LLE little strength 1/4 - Neurological Exam Neurological exam: Present: CN II-XII intact, oriented X3, no focal deficits. Absent: pronater drift, facial droop, speech deficit - Skin Skin exam: Present: dry, intact Internal Medicine: Result - Labs CBC & Chem 7: 02/21/18 05:40 02/20/18 07:08 Labs: Short CBC 02/21/18 Range/Units 05:40 WBC 9.9 (4.3-11.1) K/mcL Hgb 10.4 L (11.5-15.4) g/dL Hct 31.7 L (35.3-44.9) % Plt Count 385 (140-400) K/mcL Neutrophils # 5.8 (1.6-8.9) K/mcL - ABG Interpretation ABG results: PT/INR, D-dimer PT 19.7 Seconds (9.4-12.1) H 02/17/18 04:58 Consult Discharge Plan - Plan Referrals: Tobin Granado MD [Primary Care Provider] - Samantha Recinos [Family Provider] -
[2018-02-21] MEDS: *HR* Rivaroxaban 15 MG TABLET PO SCH ×2 (09:57→20:36)
[2018-02-21 13:50] LABS: Bilirubin,Urine Negative (Negative); Blood,Urine Moderate (Negative); Clarity,Urine Slightly Cloudy (Clear); Color,Urine Yellow (Yellow); Glucose,Urine (UA) Normal (Normal); Ketones,Urine Negative (Negative); Leukocyte Esterase,Urine Large (Negative); Nitrite,Urine Negative (Negative); PH,Urine 5.5 pH Units (5.0-8.0); Protein,Urine 30 mg/dL (Neg-Trace); Urobilinogen,Urine Normal (Normal)
[2018-02-21 15:39] LABS: Bacteria,Urine Many per hpf (None-Few); WBC,Urine TNTC per hpf (0-3)
[2018-02-22] MEDS: *HR* Rivaroxaban 15 MG TABLET PO SCH ×2 (08:16→20:12)
--- NOTE | 2018-02-22 14:29 | Internal Med Progress Note ---
Date of Encounter: 02/22/18 Time of Encounter: 14:25 - Assessment and plan (1) SAH (subarachnoid hemorrhage) Current Visit: Yes Status: Acute Assessment and plan: No new neuro deficits. Continue PT and OT. Will follow progress. Continues to have slight left upper extremity weakness and left lower extremity weakness. Follow up with neurologist as scheduled. (2) DVT prophylaxis Current Visit: Yes Status: Acute Assessment and plan: Continues xaralto. (3) Anxiety and depression Current Visit: Yes Status: Chronic Assessment and plan: Stable. Continue current medication. Will monitor. (4) UTI (urinary tract infection) Current Visit: Yes Status: Acute Assessment and plan: Urinalysis positive. Will start Cipro. Culture pending. Adjust medications as necessary. Qualifiers: Urinary tract infection type: site unspecified Hematuria presence: without hematuria Qualified Code(s): N39.0 - Urinary tract infection, site not specified - Time Spent With Patient 25 - 35 minutes - Subjective Interval history: Participating with therapy. Continues to be a max assist to sit to stand. Needs redirected frequently to stay on a task. Denies any issues including pain , shortness of breath, chest pain, headache, fever, chills, nausea vomiting and diarrhea. c/o dysuria. Discussed that urinalysis was positive. Will start Cipro. Incontinent of bladder. Discussed with nursing to start toileting schedule. Max assist for lower body dressing. - Constitutional Vitals: Temp Pulse Resp BP Pulse Ox 98.4 F 77 16 120/73 97 02/22/18 07:14 02/22/18 07:14 02/22/18 07:14 02/22/18 07:14 02/22/18 07:14 General appearance: Present: A&O X 3, pleasant, no acute distress, answers questions appropriately - Head Head exam: Present: atraumatic, normocephalic - Eye Eye exam: Present: PERRL, conjuntiva pink, sclera anicteric Pupils: Present: PERRL - Neck Neck exam general surgery: Present: supple, trachea midline. Absent: lymphadenopathy - Respiratory Respiratory exam: Present: CTAB. Absent: accessory muscle use, rales, rhonchi, wheezes - Cardiovascular Cardiovascular exam: Present: RRR, +S1, +S2. Absent: diastolic murmur, gallop, rubs, systolic murmur - GI/Abdominal GI/Abdominal exam: Present: normal bowel sounds, soft, no peritoneal signs. Absent: distended, tenderness - Extremities Exam Extremities exam: Present: warm, radial pulses palpable and symmetrical. Absent : calf tenderness, cyanotic, pedal edema Additional comments: Left leg remains flaccid. - Neurological Exam Neurological exam: Present: CN II-XII intact, oriented X3, no focal deficits. Absent: pronater drift, facial droop, speech deficit - Skin Skin exam: Present: dry, intact Internal Medicine: Result - Labs CBC & Chem 7: 02/21/18 05:40 02/20/18 07:08 Labs: Urine 02/21/18 Range/Units 11:30 Urine Color Yellow (Yellow) Urine Clarity Slightly Cloudy A (Clear) Urine pH 5.5 (5.0-8.0) pH Units Ur Specific [place] 1.020 (1.010-1.025) Urine Protein 30 H (Neg-Trace) mg/dL Urine Glucose (UA) Normal (Normal) mg/dL - ABG Interpretation ABG results: PT/INR, D-dimer PT 19.7 Seconds (9.4-12.1) H 02/17/18 04:58 Consult Discharge Plan - Plan Referrals: Tobin Granado MD [Primary Care Provider] - Samantha Recinos [Family Provider] -
[2018-02-22] MEDS: ALPRAZolam 0.25 MG TABLET PO PRN (20:12)
[2018-02-23] MEDS: *HR* Rivaroxaban 15 MG TABLET PO SCH ×2 (08:26→22:02)
[2018-02-23] MEDS: ALPRAZolam 0.25 MG TABLET PO PRN (08:33)
--- NOTE | 2018-02-23 13:21 | Internal Med Progress Note ---
Date of Encounter: 02/23/18 Time of Encounter: 13:19 - Assessment and plan (1) SAH (subarachnoid hemorrhage) Current Visit: Yes Status: Acute Assessment and plan: No acute neurological changes noted in exam. Patient continues to have mild weakness to left upper extremity and left leg remains more severe weakness 3/5 MS with decreased sensation. Patient also noted to have some hesitation when answering complex questions and difficulty following complex directions during exam. Continue on PT/OT. Patient states she believes she has had some improvement. Craniotomy site appears be healing well. We will continue with current medications which include Xarelto which has been approved per neurosurgery while at [facility]. (2) Anxiety and depression Current Visit: Yes Status: Chronic Assessment and plan: No acute issues. Patient continues to have a flat a fact at times during answers to complex questions. Patient denies any issues (3) DVT (deep venous thrombosis) Current Visit: Yes Status: Acute Assessment and plan: No acute issues. Left leg remains slightly swollen in comparison to right. Patient continues on anticoagulation. We will continue to mobilize during Qualifiers: DVT location: lower extremity Affected thrombotic vein of extremity: popliteal Chronicity: acute Laterality: left Qualified Code(s): I82.432 - Acute embolism and thrombosis of left popliteal vein (4) Pulmonary congestion Current Visit: Yes Status: Acute - Subjective Interval history: Patient appears relaxed and currently denies any acute neurological changes or shortness of breath. Patient does complain of slight discomfort to her coccyx from sitting. Patient states that she feels that her strength to the left leg has improved slight, but continues to c/o of decreased sensation to the left lower leg and severe weakness. - Constitutional Vitals: Temp Pulse Resp BP Pulse Ox 98.0 F 68 16 144/84 98 02/23/18 07:00 02/23/18 07:00 02/23/18 07:00 02/23/18 07:00 02/23/18 07:00 General appearance: Present: A&O X 3, pleasant, no acute distress, answers questions appropriately - Head Head exam: Present: atraumatic, normocephalic Additional comments: Craniotomy incision to the right scalp appears to be healing well with no signs of infection . - Eye Eye exam: Present: PERRL, conjuntiva pink, sclera anicteric Pupils: Present: PERRL - Neck Neck exam general surgery: Present: supple, trachea midline. Absent: lymphadenopathy - Respiratory Respiratory exam: Present: CTAB. Absent: accessory muscle use, rales, rhonchi, wheezes - Cardiovascular Cardiovascular exam: Present: RRR, +S1, +S2. Absent: diastolic murmur, gallop, rubs, systolic murmur - GI/Abdominal GI/Abdominal exam: Present: normal bowel sounds, soft, no peritoneal signs. Absent: distended, tenderness - Extremities Exam Extremities exam: Present: warm, radial pulses palpable and symmetrical. Absent : calf tenderness, cyanotic, pedal edema - Neurological Exam Neurological exam: Present: CN II-XII intact, oriented X3. Absent: pronater drift, facial droop, speech deficit Additional comments: Left hemiparesis. LUE shows MS of +4/5 for ext/flex and prox/distal. LLE shows 3 /5 with increased weakness noted distally from the knee down. Continues to be able to move her left foot slightly, but unable to overcome gravity. Noted decreased sensation to LLE with decreased sensation mostly to sharp. Decreaed reflex noted to lower LLE. - Psychiatric Additional comments: Patient noted to have a flat affect and shows delay in answering questions. Denies any current issues. - Skin Skin exam: Present: dry, intact Internal Medicine: Result - Labs CBC & Chem 7: 02/21/18 05:40 02/20/18 07:08 Labs: Urine 02/21/18 Range/Units 11:30 Urine Color Yellow (Yellow) Urine Clarity Slightly Cloudy A (Clear) Urine pH 5.5 (5.0-8.0) pH Units Ur Specific [place] 1.020 (1.010-1.025) Urine Protein 30 H (Neg-Trace) mg/dL Urine Glucose (UA) Normal (Normal) mg/dL - ABG Interpretation ABG results: PT/INR, D-dimer PT 19.7 Seconds (9.4-12.1) H 02/17/18 04:58 Consult Discharge Plan - Plan Referrals: Tobin Granado MD [Primary Care Provider] - Samantha Recinos [Family Provider] -
[2018-02-24] MEDS: *HR* Rivaroxaban 15 MG TABLET PO SCH ×2 (09:03→20:03)
--- NOTE | 2018-02-24 13:36 | Internal Med Progress Note ---
Date of Encounter: 02/24/18 Time of Encounter: 13:33 - Assessment and plan (1) SAH (subarachnoid hemorrhage) Current Visit: Yes Status: Acute Assessment and plan: No acute neurological changes noted in exam. Patient continues to have mild weakness to left upper extremity and left leg remains more severe weakness 3/5 MS with decreased sharp sensation. Today patient appears to have better verbal interaction during interview with no hesitation and answers noted Continue on PT /OT. Craniotomy site appears be healing well. We will continue with current medications which include Xarelto which has been approved per neurosurgery while at [facility]. (2) Anxiety and depression Current Visit: Yes Status: Chronic Assessment and plan: No acute issues. Patient continues to have a flat a fact at times during answers to complex questions, but noted to have more free verbal interaction was staffed during interview. Patient denies any issues (3) DVT (deep venous thrombosis) Current Visit: Yes Status: Acute Assessment and plan: No acute issues. Left leg remains slightly swollen in comparison to right. Patient continues on anticoagulation. We will continue to mobilize during Qualifiers: DVT location: lower extremity Affected thrombotic vein of extremity: popliteal Chronicity: acute Laterality: left Qualified Code(s): I82.432 - Acute embolism and thrombosis of left popliteal vein - Time Spent With Patient less than 15 minutes - Subjective Interval history: Patient appears relaxed and currently denies any acute neurological changes or shortness of breath. Patient states that she feels that her strength to the left leg has improved slight, but continues to c/o of decreased sensation to the left lower leg and severe weakness. Patient noted to have better interaction during interview today with no hesitation in answers. - Constitutional Vitals: Temp Pulse Resp BP Pulse Ox 97.5 F L 74 16 135/76 96 02/24/18 07:10 02/24/18 07:10 02/24/18 07:10 02/24/18 07:10 02/24/18 07:10 General appearance: Present: A&O X 3, pleasant, no acute distress, answers questions appropriately - Head Head exam: Present: atraumatic, normocephalic Additional comments: Right scalp craniotomy incision appears to be healing well. - Eye Eye exam: Present: PERRL, conjuntiva pink, sclera anicteric Pupils: Present: PERRL - Neck Neck exam general surgery: Present: supple, trachea midline. Absent: lymphadenopathy - Respiratory Respiratory exam: Present: CTAB. Absent: accessory muscle use, rales, rhonchi, wheezes - Cardiovascular Cardiovascular exam: Present: RRR, +S1, +S2. Absent: diastolic murmur, gallop, rubs, systolic murmur - GI/Abdominal GI/Abdominal exam: Present: normal bowel sounds, soft, no peritoneal signs. Absent: distended, tenderness - Extremities Exam Extremities exam: Present: warm, radial pulses palpable and symmetrical. Absent : calf tenderness, cyanotic, pedal edema - Neurological Exam Neurological exam: Present: CN II-XII intact, oriented X3. Absent: pronater drift, facial droop, speech deficit Additional comments: No acute neurological deficits noted on exam. Patient continues to have left hemiparesis with 4/5 strength to left upper extremity, more so proximally and distal. Patient continues to have severe weakness to left lower extremity with muscle strength noted at 3/5 on both extension and flexion. Patient also complains of decreased sensation from her knee down, which is more prominent with sharp sensation. - Skin Skin exam: Present: dry, intact Internal Medicine: Result - Labs CBC & Chem 7: 02/21/18 05:40 02/20/18 07:08 - ABG Interpretation ABG results: PT/INR, D-dimer PT 19.7 Seconds (9.4-12.1) H 02/17/18 04:58 Consult Discharge Plan - Plan Referrals: Tobin Granado MD [Primary Care Provider] - Samantha Recinos [Family Provider] -
[2018-02-25] MEDS: *HR* Rivaroxaban 15 MG TABLET PO SCH ×2 (08:34→20:49)
--- NOTE | 2018-02-25 12:25 | Internal Med Progress Note ---
Date of Encounter: 02/25/18 Time of Encounter: 12:15 - Assessment and plan (1) SAH (subarachnoid hemorrhage) Current Visit: Yes Status: Acute Assessment and plan: Continue routine care/management per PT/OT. Continue Xarelto (approved by [facility] while at [facility]). (2) Anxiety and depression Current Visit: Yes Status: Chronic Assessment and plan: Contiue current regimen. (3) DVT (deep venous thrombosis) Current Visit: Yes Status: Acute Assessment and plan: Continue Xarelto. Qualifiers: DVT location: lower extremity Affected thrombotic vein of extremity: popliteal Chronicity: acute Laterality: left Qualified Code(s): I82.432 - Acute embolism and thrombosis of left popliteal vein - Time Spent With Patient less than 15 minutes - Subjective Interval history: Feeling "fine." No particular concern. - Constitutional Vitals: Temp Pulse Resp BP Pulse Ox 98.0 F 89 16 121/74 95 02/25/18 10:50 02/25/18 10:50 02/25/18 10:50 02/25/18 10:50 02/25/18 10:50 General appearance: Present: A&O X 3, pleasant, no acute distress, answers questions appropriately Exam: Gen: A&Ox3, NAD. HEENT: NCAT. Neck: No palpable lymphadenopathy or thyromegaly. CV: RRR, S1S2. No murmur. Capillary refill < 2 seconds. Pulm: CTAB. Abd: (+)BS. NDNT. Neuro: LLE weakness noted. Skin: No rash. Ext: Trace pitting edema in LLE. Internal Medicine: Result - Labs CBC & Chem 7: 02/21/18 05:40 02/20/18 07:08 - ABG Interpretation ABG results: PT/INR, D-dimer PT 19.7 Seconds (9.4-12.1) H 02/17/18 04:58 Consult Discharge Plan - Plan Referrals: Tobin Granado MD [Primary Care Provider] - Samantha Recinos [Family Provider] -
[2018-02-25] MEDS: ALPRAZolam 0.25 MG TABLET PO PRN (16:50)
--- NOTE | 2018-02-26 08:26 | Internal Med Progress Note ---
Date of Encounter: 02/26/18 Time of Encounter: 08:15 - Assessment and plan (1) SAH (subarachnoid hemorrhage) Current Visit: Yes Status: Acute Assessment and plan: Continue routine care/management per PT/OT. Continue Xarelto (approved by [facility] while at [facility]). (2) Anxiety and depression Current Visit: Yes Status: Chronic Assessment and plan: Contiue current regimen. (3) DVT (deep venous thrombosis) Current Visit: Yes Status: Acute Assessment and plan: Continue Xarelto. Qualifiers: DVT location: lower extremity Affected thrombotic vein of extremity: popliteal Chronicity: acute Laterality: left Qualified Code(s): I82.432 - Acute embolism and thrombosis of left popliteal vein - Time Spent With Patient less than 15 minutes - Subjective Interval history: Feeling "great." Eating and drinking well. No particular concern. - Constitutional Vitals: Temp Pulse Resp BP Pulse Ox 98.2 F 70 16 139/86 96 02/26/18 06:45 02/26/18 06:45 02/26/18 06:45 02/26/18 06:45 02/26/18 06:45 General appearance: Present: A&O X 3, pleasant, no acute distress, answers questions appropriately Exam: Gen: A&Ox3, NAD. HEENT: NCAT. Neck: No palpable lymphadenopathy or thyromegaly. CV: RRR, S1S2. No murmur. Capillary refill < 2 seconds. Pulm: CTAB. Abd: (+)BS. NDNT. Neuro: LLE weakness noted. Skin: No rash. Ext: Trace pitting edema in LLE. Internal Medicine: Result - Labs CBC & Chem 7: 02/21/18 05:40 02/20/18 07:08 - ABG Interpretation ABG results: PT/INR, D-dimer PT 19.7 Seconds (9.4-12.1) H 02/17/18 04:58 Consult Discharge Plan - Plan Referrals: Tobin Granado MD [Primary Care Provider] - Samantha Recinos [Family Provider] -
[2018-02-26] MEDS: *HR* Rivaroxaban 15 MG TABLET PO SCH ×2 (09:12→20:37)
[2018-02-26] MEDS: ALPRAZolam 0.25 MG TABLET PO PRN (09:14)
[2018-02-27 06:20] LABS: Basophils % 0.4 %; Eosinophils % 0.2 %; Hematocrit 31.8 % (35.3-44.9); Hemoglobin 10.2 g/dL (11.5-15.4); Immature Granulocytes % 2.6 % (0-4); Lymphocytes % 24.1 %; Mean Corpuscular HGB Conc 32.1 g/dL (31.6-35.5); Mean Corpuscular Hemoglobin 28.9 pg (28.0-33.3); Mean Corpuscular Volume 90.1 fL (83.0-100.0); Monocytes # 0.4 K/mcL (0.0-1.3); Monocytes % 4.8 %; Neutrophils # 5.5 K/mcL (1.6-8.9); Platelet Count 355 K/mcL (140-400); Red Blood Count 3.53 M/mcL (3.82-4.97); Red Cell Distribution Width 14.1 % (11.5-14.5); Segmented Neutrophils % 67.9 %
[2018-02-27 06:31] LABS: BUN/Creatinine Ratio 19 (6-26); Blood Urea Nitrogen 10 mg/dL (6-20); Calcium 8.8 mg/dL (8.6-10.3); Carbon Dioxide 24 mEq/L (23-29); Chloride 107 mEq/L (98-107); Glucose 95 mg/dL (70-105); Osmolality,Calculated 285 (280-300); Potassium 3.7 mEq/L (3.5-5.1); Sodium 138 mEq/L (136-145); eGFR For Non-African Americans > 60 (> 60)
[2018-02-27] MEDS: *HR* Rivaroxaban 15 MG TABLET PO SCH ×2 (09:43→19:49)
--- NOTE | 2018-02-27 10:42 | Internal Med Progress Note ---
Date of Encounter: 02/27/18 Time of Encounter: 10:20 - Assessment and plan (1) SAH (subarachnoid hemorrhage) Current Visit: Yes Status: Acute Assessment and plan: Continue routine care/management per PT/OT. Continue Xarelto (approved by [facility] while at [facility]). (2) Anxiety and depression Current Visit: Yes Status: Chronic Assessment and plan: Contiue current regimen. (3) DVT (deep venous thrombosis) Current Visit: Yes Status: Acute Assessment and plan: Continue Xarelto. Qualifiers: DVT location: lower extremity Affected thrombotic vein of extremity: popliteal Chronicity: acute Laterality: left Qualified Code(s): I82.432 - Acute embolism and thrombosis of left popliteal vein - Time Spent With Patient less than 15 minutes - Subjective Interval history: Feeling "fine." No particular concern. - Constitutional Vitals: Temp Pulse Resp BP Pulse Ox 97.9 F 70 16 144/69 96 02/27/18 06:00 02/27/18 06:00 02/27/18 06:00 02/27/18 06:00 02/27/18 06:00 General appearance: Present: A&O X 3, pleasant, no acute distress, answers questions appropriately Exam: Gen: A&Ox3, NAD. HEENT: NCAT. Neck: No palpable lymphadenopathy or thyromegaly. CV: RRR, S1S2. No murmur. Capillary refill < 2 seconds. Pulm: CTAB. Abd: (+)BS. NDNT. Neuro: LLE weakness noted. Skin: No rash. Ext: Trace pitting edema in LLE. Internal Medicine: Result - Labs CBC & Chem 7: 02/27/18 05:50 02/27/18 05:50 Labs: Short CBC 02/27/18 Range/Units 05:50 WBC 8.1 (4.3-11.1) K/mcL Hgb 10.2 L (11.5-15.4) g/dL Hct 31.8 L (35.3-44.9) % Plt Count 355 (140-400) K/mcL Neutrophils # 5.5 (1.6-8.9) K/mcL BMP 02/27/18 05:50 Sodium 138 Potassium 3.7 Chloride 107 Carbon Dioxide 24 BUN 10 Creatinine 0.53 L Glucose 95 Calcium 8.8 - ABG Interpretation ABG results: PT/INR, D-dimer PT 19.7 Seconds (9.4-12.1) H 02/17/18 04:58 Consult Discharge Plan - Plan Referrals: Tobin Granado MD [Primary Care Provider] - Samantha Recinos [Family Provider] -
[2018-02-27] MEDS: ALPRAZolam 0.25 MG TABLET PO PRN (19:49)
[2018-02-28] MEDS: *HR* Rivaroxaban 15 MG TABLET PO SCH ×2 (08:55→20:28)
--- NOTE | 2018-02-28 13:11 | Internal Med Progress Note ---
Date of Encounter: 02/28/18 Time of Encounter: 13:09 - Assessment and plan (1) SAH (subarachnoid hemorrhage) Current Visit: Yes Status: Acute Assessment and plan: No new neuro deficits. Continue PT and OT. Will follow progress. Continues to have slight left upper extremity weakness and left lower extremity weakness. Follow up with neurologist as scheduled. (2) DVT prophylaxis Current Visit: Yes Status: Acute Assessment and plan: Continues xaralto. (3) Anxiety and depression Current Visit: Yes Status: Chronic Assessment and plan: Stable. Continue current medication. Will monitor. (4) UTI (urinary tract infection) Current Visit: Yes Status: Acute Assessment and plan: improving. continue cipro. Qualifiers: Urinary tract infection type: site unspecified Hematuria presence: without hematuria Qualified Code(s): N39.0 - Urinary tract infection, site not specified - Time Spent With Patient less than 15 minutes - Subjective Interval history: Participating with therapy. Denies any issues including pain, shortness of breath, chest pain, headache, fever, chills, nausea vomiting and diarrhea. continues to report bladder urgency. on Cipro for UTI. Incontinent of bladder. maintaining appetite and hydration. bowels moving as normal. - Constitutional Vitals: Temp Pulse Resp BP Pulse Ox 98.1 F 77 14 141/75 98 02/28/18 09:05 02/28/18 09:05 02/28/18 09:05 02/28/18 09:05 02/28/18 09:05 General appearance: Present: cooperative, A&O X 3, pleasant, no acute distress, answers questions appropriately - Head Head exam: Present: atraumatic, normocephalic - Eye Eye exam: Present: PERRL, conjuntiva pink, sclera anicteric Pupils: Present: PERRL - Neck Neck exam general surgery: Present: supple, trachea midline. Absent: lymphadenopathy - Respiratory Respiratory exam: Present: CTAB. Absent: accessory muscle use, rales, rhonchi, wheezes - Cardiovascular Cardiovascular exam: Present: RRR, +S1, +S2. Absent: diastolic murmur, gallop, rubs, systolic murmur - GI/Abdominal GI/Abdominal exam: Present: normal bowel sounds, soft, no peritoneal signs. Absent: distended, tenderness - Extremities Exam Extremities exam: Present: warm, radial pulses palpable and symmetrical. Absent : calf tenderness, cyanotic, pedal edema Additional comments: LLEweakness, able lift leg slightly through hip and lift foot up through ankle. - Neurological Exam Neurological exam: Present: CN II-XII intact, oriented X3, no focal deficits. Absent: pronater drift, facial droop, speech deficit - Skin Skin exam: Present: dry, intact Internal Medicine: Result - Labs CBC & Chem 7: 02/27/18 05:50 02/27/18 05:50 - ABG Interpretation ABG results: PT/INR, D-dimer PT 19.7 Seconds (9.4-12.1) H 02/17/18 04:58 Consult Discharge Plan - Plan Referrals: Tobin Granado MD [Primary Care Provider] - Samantha Recinos [Family Provider] -
[2018-03-01] MEDS: *HR* Rivaroxaban 15 MG TABLET PO SCH ×2 (09:27→20:39)
--- NOTE | 2018-03-01 14:32 | Internal Med Progress Note ---
Date of Encounter: 03/01/18 Time of Encounter: 11:00 - Assessment and plan (1) SAH (subarachnoid hemorrhage) Current Visit: Yes Status: Acute Assessment and plan: She continues to make slow progress. The mental status and functional overlay is still a question. She is less distracted and responding better to therapies , per therapy team. (2) DVT (deep venous thrombosis) Current Visit: Yes Status: Acute Assessment and plan: Edema has returned to normal. She will continue on Eliquis. Qualifiers: DVT location: lower extremity Affected thrombotic vein of extremity: popliteal Chronicity: acute Laterality: left Qualified Code(s): I82.432 - Acute embolism and thrombosis of left popliteal vein (3) Anxiety and depression Current Visit: Yes Status: Chronic Assessment and plan: On multiple medications and will continue as planned. (4) Neurogenic bladder Current Visit: Yes Status: Acute Assessment and plan: This seems to be resolving or resolved. - Subjective Interval history: Patient is doing relatively well but in her wedge is fallen on the floor. We removed this and repositioned. She showed normal function of left lower extremity with only moderate weakness. She has good dorsiflexion and again, this seems to be improving. She denies bowel or bladder problems but states she feels like she could go. We checked a postvoid residual and this was 0. She has no other urinary symptoms. Nursing notes a "scratch on her buttock" which she frequently manipulates. I was unable to see this, today. However, I asked nursing to let me look at this with them in the next day or so. Spoke with therapy team at noon today. This is showing some progress and discussed her return to work, returned home, etc. Patient has no complaint of chest discomfort, dyspnea, orthopnea, palpitations, nausea or vomiting, constipation or diarrhea, other changes in bowel habits, difficulty with urination, rash or itching, or other new complaints, except as mentioned above. Review of systems is otherwise negative. I discussed management of her care with nursing staff. - Constitutional Vitals: Temp Pulse Resp BP Pulse Ox 98.4 F 97 16 125/52 95 03/01/18 07:55 03/01/18 07:55 03/01/18 07:55 03/01/18 07:55 03/01/18 07:55 General appearance: Present: cooperative, pleasant, answers questions appropriately Exam: Examination: (Except as mentioned above): General: In no apparent distress. Alert and oriented 3. Nondiaphoretic. Head: Atraumatic and normocephalic. Respiratory: No use of accessory muscles. Lungs are clear throughout. Normal airflow. Cardiovascular: Regular rate and rhythm without murmur appreciated. Abdomen: Bowel sounds are normal. No hepatosplenomegaly mass or tenderness appreciated. Obese and therefore difficult to palpate deeply. Extremities: No cyanosis clubbing or edema. Skin: Warm and non-diaphoretic with no new lesions noted. Internal Medicine: Result - Labs CBC & Chem 7: 02/27/18 05:50 02/27/18 05:50 - ABG Interpretation ABG results: PT/INR, D-dimer PT 19.7 Seconds (9.4-12.1) H 02/17/18 04:58 Consult Discharge Plan - Plan Referrals: Tobin Granado MD [Primary Care Provider] - Samantha Recinos [Family Provider] -
[2018-03-01] MEDS: ALPRAZolam 0.25 MG TABLET PO PRN (20:39)
[2018-03-02] MEDS: *HR* Rivaroxaban 15 MG TABLET PO SCH ×2 (08:21→20:23)
[2018-03-02] MEDS ORDERED: cloNIDine HCl 0.1 MG TABLET PO PRN (11:45)
--- NOTE | 2018-03-02 12:42 | Internal Med Progress Note ---
Date of Encounter: 03/02/18 Time of Encounter: 12:38 - Assessment and plan (1) SAH (subarachnoid hemorrhage) Current Visit: Yes Status: Acute Assessment and plan: No acute neurological changes noted in exam. Patient continues to have mild weakness to left upper extremity and left leg muscle strength has improved since my last exam several days ago. LLE currently with 4/5 MS, but noted continued moderate dorsi flexion weakness. Patient continues to complain of slight loss of sensation to left anterior leg, mostly to sharp sensation. Today patient appears to have better verbal interaction during interview with no hesitation. Continue on PT/OT. Craniotomy site appears be healing well. We will continue with current medications which include Xarelto which has been approved per neurosurgery while at [facility]. (2) DVT (deep venous thrombosis) Current Visit: Yes Status: Acute Assessment and plan: No acute issues. Left leg remains slightly swollen in comparison to right. Patient continues on anticoagulation. We will continue to mobilize during Qualifiers: DVT location: lower extremity Affected thrombotic vein of extremity: popliteal Chronicity: acute Laterality: left Qualified Code(s): I82.432 - Acute embolism and thrombosis of left popliteal vein - Time Spent With Patient less than 15 minutes - Subjective Interval history: Patient appears relaxed and currently denies any acute neurological changes or shortness of breath. Patient states that she feels that her strength to the left leg has improved slight, but continues to c/o of decreased sensation to the left lower leg and severe weakness. - Constitutional Vitals: Temp Pulse Resp BP Pulse Ox 97.8 F 72 18 167/97 97 03/02/18 06:56 03/02/18 06:56 03/02/18 06:56 03/02/18 06:56 03/02/18 06:56 General appearance: Present: cooperative, A&O X 3, pleasant, answers questions appropriately - Head Head exam: Present: atraumatic, normocephalic - Eye Eye exam: Present: PERRL, conjuntiva pink, sclera anicteric Pupils: Present: PERRL - Neck Neck exam general surgery: Present: supple, trachea midline. Absent: lymphadenopathy - Respiratory Respiratory exam: Present: CTAB. Absent: accessory muscle use, rales, rhonchi, wheezes - Cardiovascular Cardiovascular exam: Present: RRR, +S1, +S2. Absent: diastolic murmur, gallop, rubs, systolic murmur - GI/Abdominal GI/Abdominal exam: Present: normal bowel sounds, soft, no peritoneal signs. Absent: distended, tenderness - Extremities Exam Extremities exam: Present: warm, radial pulses palpable and symmetrical. Absent : calf tenderness, cyanotic, pedal edema - Neurological Exam Neurological exam: Present: CN II-XII intact, oriented X3. Absent: pronater drift, facial droop, speech deficit Additional comments: Continues to show left hemiparesis with left extremities and 4/5. Noted slight left foot drop. Right extremities at 5/5. Right scalp surgical incision for craniotomy appears to be well-healed. - Skin Skin exam: Present: dry, intact Internal Medicine: Result - Labs CBC & Chem 7: 02/27/18 05:50 02/27/18 05:50 - ABG Interpretation ABG results: PT/INR, D-dimer PT 19.7 Seconds (9.4-12.1) H 02/17/18 04:58 Consult Discharge Plan - Plan Referrals: Tobin Granado MD [Primary Care Provider] - Samantha Recinos [Family Provider] -
[2018-03-02] MEDS: ALPRAZolam 0.25 MG TABLET PO PRN (20:22)
[2018-03-03 04:48] LABS: Hematocrit 33.9 % (35.3-44.9); Hemoglobin 10.9 g/dL (11.5-15.4); Mean Corpuscular HGB Conc 32.2 g/dL (31.6-35.5); Mean Corpuscular Volume 90.2 fL (83.0-100.0); Mean Platelet Volume 8.1 fL (9.4-12.4); Platelet Count 285 K/mcL (140-400); Red Blood Count 3.76 M/mcL (3.82-4.97); Red Cell Distribution Width 14.6 % (11.5-14.5)
[2018-03-03 05:08] LABS: BUN/Creatinine Ratio 13 (6-26); Blood Urea Nitrogen 7 mg/dL (6-20); Calcium 9.2 mg/dL (8.6-10.3); Carbon Dioxide 26 mEq/L (23-29); Chloride 104 mEq/L (98-107); Glucose 93 mg/dL (70-105); Magnesium 1.9 mg/dL (1.6-2.6); Osmolality,Calculated 282 (280-300); Potassium 3.5 mEq/L (3.5-5.1); Sodium 137 mEq/L (136-145); eGFR For Non-African Americans > 60 (> 60)
[2018-03-03] MEDS: *HR* Rivaroxaban 15 MG TABLET PO SCH ×2 (08:25→20:26)
[2018-03-03] MEDS: ALPRAZolam 0.25 MG TABLET PO PRN ×2 (12:03→20:26)
--- NOTE | 2018-03-03 16:46 | Internal Med Progress Note ---
Date of Encounter: 03/03/18 Time of Encounter: 16:43 - Assessment and plan (1) SAH (subarachnoid hemorrhage) Current Visit: Yes Status: Acute Assessment and plan: No acute neurological changes noted in exam. Patient continues to have mild weakness to left upper extremity and left leg muscle strength has improved since my last exam several days ago. LLE currently with 4/5 MS, but noted continued moderate dorsi flexion weakness. Patient continues to complain of slight loss of sensation to left anterior leg, mostly to sharp sensation. Today patient appears to have better verbal interaction during interview with no hesitation. Continue on PT/OT. Craniotomy site appears be healing well. We will continue with current medications which include Xarelto which has been approved per neurosurgery while at [facility]. (2) DVT (deep venous thrombosis) Current Visit: Yes Status: Acute Assessment and plan: No acute issues. Left leg remains slightly swollen in comparison to right. Patient continues on anticoagulation. We will continue to mobilize Qualifiers: DVT location: lower extremity Affected thrombotic vein of extremity: popliteal Chronicity: acute Laterality: left Qualified Code(s): I82.432 - Acute embolism and thrombosis of left popliteal vein - Subjective Interval history: Patient appears relaxed and currently denies any acute neurological changes or shortness of breath. Patient states that she feels that her strength to the left leg has improved slight, but continues to c/o of decreased sensation to the left lower leg and severe weakness. - Constitutional Vitals: Temp Pulse Resp BP Pulse Ox 97.5 F L 67 17 142/73 97 03/03/18 06:36 03/03/18 06:36 03/03/18 06:36 03/03/18 06:36 03/03/18 06:36 General appearance: Present: cooperative, A&O X 3, pleasant, answers questions appropriately - Head Head exam: Present: atraumatic, normocephalic - Eye Eye exam: Present: PERRL, conjuntiva pink, sclera anicteric Pupils: Present: PERRL - Neck Neck exam general surgery: Present: supple, trachea midline. Absent: lymphadenopathy - Respiratory Respiratory exam: Present: CTAB. Absent: accessory muscle use, rales, rhonchi, wheezes - Cardiovascular Cardiovascular exam: Present: RRR, +S1, +S2. Absent: diastolic murmur, gallop, rubs, systolic murmur - GI/Abdominal GI/Abdominal exam: Present: normal bowel sounds, soft, no peritoneal signs. Absent: distended, tenderness - Extremities Exam Extremities exam: Present: warm, radial pulses palpable and symmetrical. Absent : calf tenderness, cyanotic, pedal edema - Neurological Exam Neurological exam: Present: CN II-XII intact, oriented X3. Absent: pronater drift, facial droop, speech deficit Additional comments: Patient continues to have left hemiparesis with LUE at 4/5 for flex/ext, distal/ prox. LLE noted 4/5 MS, but more so distal with noted footdrop. No hyperreflexia. RE 5/5. - Skin Skin exam: Present: dry, intact Internal Medicine: Result - Labs CBC & Chem 7: 03/03/18 04:11 03/03/18 04:11 Labs: Short CBC 03/03/18 Range/Units 04:11 WBC 8.1 (4.3-11.1) K/mcL Hgb 10.9 L (11.5-15.4) g/dL Hct 33.9 L (35.3-44.9) % Plt Count 285 (140-400) K/mcL BMP 03/03/18 04:11 Sodium 137 Potassium 3.5 Chloride 104 Carbon Dioxide 26 BUN 7 Creatinine 0.56 L Glucose 93 Calcium 9.2 - ABG Interpretation ABG results: PT/INR, D-dimer PT 19.7 Seconds (9.4-12.1) H 02/17/18 04:58 - Impressions Impressions Elbow X-Ray 03/02/18 17:49 IMPRESSION: 1. Small elbow effusion. Occult fracture cannot be excluded in the setting of elbow effusion. The olecranon appears grossly intact. D/ / Keith Sandoval MD / Keith Sandoval MD Interpreting Provider: Keith Sandoval MD Consult Discharge Plan - Plan Referrals: Tobin Granado MD [Primary Care Provider] - Samantha Recinos [Family Provider] -
[2018-03-04] MEDS: *HR* Rivaroxaban 15 MG TABLET PO SCH ×2 (08:14→20:10)
--- NOTE | 2018-03-04 15:39 | Internal Med Progress Note ---
Date of Encounter: 03/04/18 Time of Encounter: 15:37 - Assessment and plan (1) SAH (subarachnoid hemorrhage) Current Visit: Yes Status: Acute Assessment and plan: She continues to make slow but steady progress. Her affect is somewhat better. She is a little bit less. She continues to progress well, with therapies.. (2) DVT (deep venous thrombosis) Current Visit: Yes Status: Acute Assessment and plan: Edema is persistent but mild. I have told her that elevation is her best defense against this and this may take 3-6 months to normalize or even could be permanent. Qualifiers: DVT location: lower extremity Affected thrombotic vein of extremity: popliteal Chronicity: acute Laterality: left Qualified Code(s): I82.432 - Acute embolism and thrombosis of left popliteal vein (3) Anxiety and depression Current Visit: Yes Status: Chronic Assessment and plan: On multiple medications and will continue as planned. Will ask for a psychology consultation asked week, as this becomes available, if the patient is still here. (4) Neurogenic bladder Current Visit: Yes Status: Acute Assessment and plan: As noted, we will discontinue Urecholine and follow. I let patient know that this may take a day or 2 before her symptoms resolve. - Subjective Interval history: Patient is noting that she has nocturnal spasm in her bladder. She feels that this related to urecholine. Although I told her that this is possibly her bladder and that I was not sure, she feels that this is been going on 3 or 4 times as week. For this reason, Urecholine will be discontinued. Her bowels have moved well without diarrhea and she continued to progress well with therapy. Therapist notes that she is walking better than before. Patient has no complaint of chest discomfort, dyspnea, orthopnea, palpitations, nausea or vomiting, constipation or diarrhea, other changes in bowel habits, difficulty with urination, rash or itching, or other new complaints, except as mentioned above. Review of systems is otherwise negative. I discussed management of her care with nursing staff. - Constitutional Vitals: Temp Pulse Resp BP Pulse Ox 98 F 70 17 118/67 97 03/04/18 07:53 03/04/18 07:53 03/04/18 07:53 03/04/18 07:53 03/04/18 07:53 General appearance: Present: cooperative, pleasant, answers questions appropriately Exam: Examination: (Except as mentioned above): General: In no apparent distress. Alert and oriented 3. Nondiaphoretic. Head: Atraumatic and normocephalic. Respiratory: No use of accessory muscles. Lungs are clear throughout. Normal airflow. Cardiovascular: Regular rate and rhythm without murmur appreciated. Abdomen: Bowel sounds are normal. No hepatosplenomegaly mass or tenderness appreciated. Patient is examined upright in chair and this also limits exam. Obese and therefore difficult to palpate deeply. Extremities: No cyanosis clubbing or change in edema. She still has 1-2+ pitting in the left lower extremity but no cord or calf tenderness. Skin: Warm and non-diaphoretic with no new lesions noted. Internal Medicine: Result - Labs CBC & Chem 7: 03/03/18 04:11 03/03/18 04:11 - ABG Interpretation ABG results: PT/INR, D-dimer PT 19.7 Seconds (9.4-12.1) H 02/17/18 04:58 Consult Discharge Plan - Plan Referrals: Tobin Granado MD [Primary Care Provider] - Samantha Recinos [Family Provider] -
[2018-03-04] MEDS: ALPRAZolam 0.25 MG TABLET PO PRN (20:11)
[2018-03-05] MEDS: *HR* Rivaroxaban 15 MG TABLET PO SCH ×2 (08:52→20:29)
--- NOTE | 2018-03-05 09:41 | Internal Med Progress Note ---
Date of Encounter: 03/05/18 Time of Encounter: 09:39 - Assessment and plan (1) SAH (subarachnoid hemorrhage) Current Visit: Yes Status: Acute Assessment and plan: No new neuro deficits. Continue PT and OT. Will follow progress. Continues to have slight left upper extremity weakness and left lower extremity weakness, but making a lot of improvement this week. Follow up with neurologist as scheduled. (2) DVT prophylaxis Current Visit: Yes Status: Acute Assessment and plan: Continues xaralto. (3) Anxiety and depression Current Visit: Yes Status: Chronic Assessment and plan: Stable. Continue current medication. Will monitor. - Time Spent With Patient less than 15 minutes - Subjective Interval history: Participating with therapy. Stated that she ambulated 80 feet with Walker with therapy yesterday. Denies any issues including pain, shortness of breath, chest pain, headache, fever, chills, nausea vomiting and diarrhea. maintaining appetite and hydration. bowels moving as normal. Drinking a lot of sweet tea. Discussed educated how caffeine can cause bladder spasms. - Constitutional Vitals: Temp Pulse Resp BP Pulse Ox 97.8 F 73 18 155/92 95 03/05/18 07:44 03/05/18 07:44 03/05/18 07:44 03/05/18 07:44 03/05/18 07:44 General appearance: Present: cooperative, pleasant, answers questions appropriately - Head Head exam: Present: atraumatic, normocephalic - Eye Eye exam: Present: PERRL, conjuntiva pink, sclera anicteric Pupils: Present: PERRL - Neck Neck exam general surgery: Present: supple, trachea midline. Absent: lymphadenopathy - Respiratory Respiratory exam: Present: CTAB. Absent: accessory muscle use, rales, rhonchi, wheezes - Cardiovascular Cardiovascular exam: Present: RRR, +S1, +S2. Absent: diastolic murmur, gallop, rubs, systolic murmur - GI/Abdominal GI/Abdominal exam: Present: normal bowel sounds, soft, no peritoneal signs. Absent: distended, tenderness - Extremities Exam Extremities exam: Present: warm, radial pulses palpable and symmetrical. Absent : calf tenderness, cyanotic, pedal edema Additional comments: Left-sided weakness - Neurological Exam Neurological exam: Present: CN II-XII intact, oriented X3, no focal deficits. Absent: pronater drift, facial droop, speech deficit - Skin Skin exam: Present: dry, intact Internal Medicine: Result - Labs CBC & Chem 7: 03/03/18 04:11 03/03/18 04:11 - ABG Interpretation ABG results: PT/INR, D-dimer PT 19.7 Seconds (9.4-12.1) H 02/17/18 04:58 Consult Discharge Plan - Plan Referrals: Tobin Granado MD [Primary Care Provider] - Samantha Recinos [Family Provider] -
[2018-03-06] MEDS: *HR* Rivaroxaban 15 MG TABLET PO SCH ×2 (08:39→20:20)
[2018-03-06] MEDS: ALPRAZolam 0.25 MG TABLET PO PRN ×2 (08:45→20:19)
--- NOTE | 2018-03-06 12:52 | Internal Med Progress Note ---
Date of Encounter: 03/06/18 Time of Encounter: 12:51 - Assessment and plan (1) SAH (subarachnoid hemorrhage) Current Visit: Yes Status: Acute Assessment and plan: No new neuro deficits. Continue PT and OT. Will follow progress. Continues to have slight left upper extremity weakness and left lower extremity weakness, but making a lot of improvement this week. Follow up with neurologist as scheduled. (2) DVT prophylaxis Current Visit: Yes Status: Acute Assessment and plan: Continues xaralto. (3) Anxiety and depression Current Visit: Yes Status: Chronic Assessment and plan: Stable. Continue current medication. Will monitor. - Time Spent With Patient less than 15 minutes - Subjective Interval history: Participating with therapy. ambulating with walker with therapy. Denies any issues including pain, shortness of breath, chest pain, headache, fever, chills , nausea vomiting and diarrhea. maintaining appetite and hydration. bowels moving as normal. - Constitutional Vitals: Temp Pulse Resp BP Pulse Ox 98.6 F 72 17 141/84 95 03/06/18 07:44 03/06/18 07:44 03/06/18 07:44 03/06/18 07:44 03/06/18 07:44 General appearance: Present: cooperative, pleasant, answers questions appropriately - Head Head exam: Present: atraumatic, normocephalic - Eye Eye exam: Present: PERRL, conjuntiva pink, sclera anicteric Pupils: Present: PERRL - Neck Neck exam general surgery: Present: supple, trachea midline. Absent: lymphadenopathy - Respiratory Respiratory exam: Present: CTAB. Absent: accessory muscle use, rales, rhonchi, wheezes - Cardiovascular Cardiovascular exam: Present: RRR, +S1, +S2. Absent: diastolic murmur, gallop, rubs, systolic murmur - GI/Abdominal GI/Abdominal exam: Present: normal bowel sounds, soft, no peritoneal signs. Absent: distended, tenderness - Extremities Exam Extremities exam: Present: warm, radial pulses palpable and symmetrical. Absent : calf tenderness, cyanotic, pedal edema Additional comments: LLE weakness - Neurological Exam Neurological exam: Present: CN II-XII intact, oriented X3, no focal deficits. Absent: pronater drift, facial droop, speech deficit - Skin Skin exam: Present: dry, intact Internal Medicine: Result - Labs CBC & Chem 7: 03/03/18 04:11 03/03/18 04:11 - ABG Interpretation ABG results: PT/INR, D-dimer PT 19.7 Seconds (9.4-12.1) H 02/17/18 04:58 Consult Discharge Plan - Plan Referrals: Tobin Granado MD [Primary Care Provider] - Samantha Recinos [Family Provider] -
[2018-03-07] MEDS: *HR* Rivaroxaban 15 MG TABLET PO SCH ×2 (08:35→20:02)
--- NOTE | 2018-03-07 10:59 | Internal Med Progress Note ---
Date of Encounter: 03/07/18 Time of Encounter: 10:58 - Assessment and plan (1) SAH (subarachnoid hemorrhage) Current Visit: Yes Status: Acute Assessment and plan: No new neuro deficits. Continue PT and OT. Will follow progress. Continues to have slight left upper extremity weakness and left lower extremity weakness, but making a lot of improvement this week. Follow up with neurologist as scheduled. (2) DVT prophylaxis Current Visit: Yes Status: Acute Assessment and plan: Continues xaralto. (3) Anxiety and depression Current Visit: Yes Status: Chronic Assessment and plan: Stable. Continue current medication. Will monitor. - Time Spent With Patient less than 15 minutes - Subjective Interval history: Participating with therapy. Doing better staying on task. Working with occupational therapy and kitchen to prepare putting. Had to be reminded several times to lock brakes on wheelchair before reaching or standing Denies any issues including pain, shortness of breath, chest pain, headache, fever, chills, nausea vomiting and diarrhea. maintaining appetite and hydration. bowels moving as normal. - Constitutional Vitals: Temp Pulse Resp BP Pulse Ox 98.5 F 70 16 161/86 99 03/07/18 06:45 03/07/18 06:45 03/07/18 06:45 03/07/18 06:45 03/07/18 06:45 General appearance: Present: cooperative, pleasant, answers questions appropriately - Head Head exam: Present: atraumatic, normocephalic - Eye Eye exam: Present: PERRL, conjuntiva pink, sclera anicteric Pupils: Present: PERRL - Neck Neck exam general surgery: Present: supple, trachea midline. Absent: lymphadenopathy - Respiratory Respiratory exam: Present: CTAB. Absent: accessory muscle use, rales, rhonchi, wheezes - Cardiovascular Cardiovascular exam: Present: RRR, +S1, +S2. Absent: diastolic murmur, gallop, rubs, systolic murmur - GI/Abdominal GI/Abdominal exam: Present: normal bowel sounds, soft, no peritoneal signs. Absent: distended, tenderness - Extremities Exam Extremities exam: Present: warm, radial pulses palpable and symmetrical. Absent : calf tenderness, cyanotic, pedal edema Additional comments: Left lower extremity weakness. - Neurological Exam Neurological exam: Present: CN II-XII intact, oriented X3, no focal deficits. Absent: pronater drift, facial droop, speech deficit - Skin Skin exam: Present: dry, intact Internal Medicine: Result - Labs CBC & Chem 7: 03/03/18 04:11 03/03/18 04:11 - ABG Interpretation ABG results: PT/INR, D-dimer PT 19.7 Seconds (9.4-12.1) H 02/17/18 04:58 Consult Discharge Plan - Plan Referrals: Tobin Granado MD [Primary Care Provider] - Samantha Recinos [Family Provider] -
[2018-03-07] MEDS: ALPRAZolam 0.25 MG TABLET PO PRN (20:02)
--- NOTE | 2018-03-08 07:23 | Internal Med Progress Note ---
Date of Encounter: 03/08/18 Time of Encounter: 07:20 - Assessment and plan (1) SAH (subarachnoid hemorrhage) Current Visit: Yes Status: Acute Assessment and plan: No acute neurological changes noted in exam. Patient continues to have mild weakness to left upper extremity and left leg muscle strength has improved since my last exam several days ago. LLE currently with 4/5 MS, but noted continued moderate left hip flexion weakness. Patient's dorsiflexion on the left foot has improved greatly since last exam. Patient continues to complain of slight loss of sensation to left anterior leg, mostly to sharp sensation. Craniotomy site appears be healing well. We will continue with current medications which include Xarelto which has been approved per neurosurgery while at [facility]. (2) DVT (deep venous thrombosis) Current Visit: Yes Status: Acute Assessment and plan: No acute issues. Left leg remains slightly swollen in comparison to right. Patient continues on anticoagulation. We will continue to mobilize Qualifiers: DVT location: lower extremity Affected thrombotic vein of extremity: popliteal Chronicity: acute Laterality: left Qualified Code(s): I82.432 - Acute embolism and thrombosis of left popliteal vein - Time Spent With Patient less than 15 minutes - Subjective Interval history: Patient appears relaxed and currently denies any acute neurological changes or shortness of breath. Patient states that she feels that her strength to the left leg has improved slight, but continues to c/o of decreased sensation to the left lower leg. - Constitutional Vitals: Temp Pulse Resp BP Pulse Ox 97.9 F 77 16 126/87 99 03/08/18 06:28 03/08/18 06:28 03/08/18 06:28 03/08/18 06:28 03/08/18 06:28 General appearance: Present: cooperative, pleasant, answers questions appropriately - Head Head exam: Present: atraumatic, normocephalic Additional comments: Right scalp craniotomy surgical incisions appear to be well-healed. - Eye Eye exam: Present: PERRL, conjuntiva pink, sclera anicteric Pupils: Present: PERRL - Neck Neck exam general surgery: Present: supple, trachea midline. Absent: lymphadenopathy - Respiratory Respiratory exam: Present: CTAB. Absent: accessory muscle use, rales, rhonchi, wheezes - Cardiovascular Cardiovascular exam: Present: RRR, +S1, +S2. Absent: diastolic murmur, gallop, rubs, systolic murmur - GI/Abdominal GI/Abdominal exam: Present: normal bowel sounds, soft, no peritoneal signs. Absent: distended, tenderness - Extremities Exam Extremities exam: Present: warm, radial pulses palpable and symmetrical. Absent : calf tenderness, cyanotic, pedal edema - Neurological Exam Neurological exam: Present: CN II-XII intact, oriented X3. Absent: pronater drift, facial droop, speech deficit Additional comments: Patient continues to have slight left hemiparesis with left extremities at 4/5 muscle strength, with the exception of her left lower leg which shows improved strength but continues to have 3/5 muscle strength left hip flexion. Patient continues to complain of decrease sensation to left lower leg. Right extremity is 5/5. - Skin Skin exam: Present: dry, intact Internal Medicine: Result - Labs CBC & Chem 7: 03/03/18 04:11 03/03/18 04:11 - ABG Interpretation ABG results: PT/INR, D-dimer PT 19.7 Seconds (9.4-12.1) H 02/17/18 04:58 Consult Discharge Plan - Plan Referrals: Tobin Granado MD [Primary Care Provider] - Samantha Recinos [Family Provider] -
[2018-03-08] MEDS: *HR* Rivaroxaban 15 MG TABLET PO SCH ×2 (08:26→20:24)
[2018-03-08] MEDS: ALPRAZolam 0.25 MG TABLET PO PRN (20:24)
[2018-03-09 05:36] LABS: Hematocrit 34.7 % (35.3-44.9); Hemoglobin 11.2 g/dL (11.5-15.4); Mean Corpuscular HGB Conc 32.3 g/dL (31.6-35.5); Mean Corpuscular Hemoglobin 29.1 pg (28.0-33.3); Mean Corpuscular Volume 90.1 fL (83.0-100.0); Mean Platelet Volume 8.2 fL (9.4-12.4); Platelet Count 209 K/mcL (140-400); Red Blood Count 3.85 M/mcL (3.82-4.97); Red Cell Distribution Width 14.4 % (11.5-14.5)
[2018-03-09 05:54] LABS: Alanine Aminotransferase 11 Units/L (7-52); Albumin 3.4 g/dL (3.5-5.7); Albumin/Globulin Ratio 1.1 (1.1-2.2); Alkaline Phosphatase 75 Units/L (34-104); Aspartate Amino Transferase 12 Units/L (13-39); BUN/Creatinine Ratio 13 (6-26); Bilirubin,Total 0.5 mg/dL (0.3-1.0); Blood Urea Nitrogen 7 mg/dL (6-20); Calcium 9.3 mg/dL (8.6-10.3); Carbon Dioxide 26 mEq/L (23-29); Chloride 104 mEq/L (98-107); Glucose 98 mg/dL (70-105); Magnesium 1.9 mg/dL (1.6-2.6); Osmolality,Calculated 280 (280-300); Potassium 3.8 mEq/L (3.5-5.1); Sodium 136 mEq/L (136-145); Total Protein 6.4 g/dL (6.4-8.9); eGFR For Non-African Americans > 60 (> 60)
[2018-03-09] MEDS: *HR* Rivaroxaban 15 MG TABLET PO SCH ×2 (08:14→21:19)
[2018-03-09 09:59] LABS: Bilirubin,Urine Negative (Negative); Blood,Urine Trace-intact (Negative); Clarity,Urine Clear (Clear); Color,Urine Yellow (Yellow); Glucose,Urine (UA) Normal (Normal); Ketones,Urine Negative (Negative); Leukocyte Esterase,Urine Large (Negative); Nitrite,Urine Positive (Negative); Protein,Urine Negative (Neg-Trace); Specific Gravity,Urine 1.015 (1.010-1.025); Urobilinogen,Urine Normal (Normal)
[2018-03-09 10:57] LABS: Bacteria,Urine Moderate per hpf (None-Few); WBC,Urine TNTC per hpf (0-3)
--- NOTE | 2018-03-09 11:41 | Internal Med Progress Note ---
Date of Encounter: 03/09/18 Time of Encounter: 11:39 - Assessment and plan (1) SAH (subarachnoid hemorrhage) Current Visit: Yes Status: Acute Assessment and plan: No acute neurological changes noted in exam. Patient continues to have mild weakness to left upper extremity and left leg muscle strength has improved since my last exam several days ago. LLE currently with +4/5 MS. Patient's dorsiflexion on the left foot has improved greatly since last exam. Patient continues to complain of slight loss of sensation to left anterior leg, mostly to sharp sensation. Patient continues to progress with physical therapy and is reported to doing well with her recent challenge of ambulating up stairs. Patient had some issues with left foot drop but her ambulation has improved since a brace was fitted. Craniotomy site appears be healing well. We will continue with current medications which include Xarelto which has been approved per neurosurgery while at [facility]. (2) DVT (deep venous thrombosis) Current Visit: Yes Status: Acute Assessment and plan: No acute issues. Left leg remains slightly swollen in comparison to right. Patient continues on anticoagulation. We will continue to mobilize Qualifiers: DVT location: lower extremity Affected thrombotic vein of extremity: popliteal Chronicity: acute Laterality: left Qualified Code(s): I82.432 - Acute embolism and thrombosis of left popliteal vein - Time Spent With Patient less than 15 minutes - Subjective Interval history: Patient appears relaxed and currently denies any acute neurological changes or shortness of breath. Patient states that she feels that her strength to the left leg has improved slight, but continues to c/o of decreased sensation to the left lower leg. Patient reportedly has been progressing well with doing stairs. Patient reportedly has several stairs to enter her home. - Constitutional Vitals: Temp Pulse Resp BP Pulse Ox 97.8 F 71 16 148/76 96 03/09/18 07:14 03/09/18 07:14 03/09/18 07:14 03/09/18 07:14 03/09/18 07:14 General appearance: Present: cooperative, pleasant, answers questions appropriately - Head Head exam: Present: atraumatic, normocephalic - Eye Eye exam: Present: PERRL, conjuntiva pink, sclera anicteric Pupils: Present: PERRL - Neck Neck exam general surgery: Present: supple, trachea midline. Absent: lymphadenopathy - Respiratory Respiratory exam: Present: CTAB. Absent: accessory muscle use, rales, rhonchi, wheezes - Cardiovascular Cardiovascular exam: Present: RRR, +S1, +S2. Absent: diastolic murmur, gallop, rubs, systolic murmur - GI/Abdominal GI/Abdominal exam: Present: normal bowel sounds, soft, no peritoneal signs. Absent: distended, tenderness - Extremities Exam Extremities exam: Present: warm, radial pulses palpable and symmetrical. Absent : calf tenderness, cyanotic, pedal edema - Neurological Exam Neurological exam: Present: CN II-XII intact, oriented X3. Absent: pronater drift, facial droop, speech deficit Additional comments: Patient continues to show very slight left hemiparesis with a +4/5 muscle strength. Patient has increased weakness to left lower leg which continues to have or/5 muscle strength and noted slight decrease and dorsiflexion. Patient complaints of slight decrease in sensation to the left lower leg. - Skin Skin exam: Present: dry, intact Internal Medicine: Result - Labs CBC & Chem 7: 03/09/18 05:30 03/09/18 05:30 Labs: Short CBC 03/09/18 Range/Units 05:30 WBC 6.5 (4.3-11.1) K/mcL Hgb 11.2 L (11.5-15.4) g/dL Hct 34.7 L (35.3-44.9) % Plt Count 209 (140-400) K/mcL BMP 03/09/18 05:30 Sodium 136 Potassium 3.8 Chloride 104 Carbon Dioxide 26 BUN 7 Creatinine 0.56 L Glucose 98 Calcium 9.3 Liver Function 03/09/18 Range/Units 05:30 Total Bilirubin 0.5 (0.3-1.0) mg/dL AST 12 L (13-39) Units/L ALT 11 (7-52) Units/L Alkaline Phosphatase 75 (34-104) Units/L Albumin 3.4 L (3.5-5.7) g/dL Urine 03/09/18 Range/Units 09:03 Urine Color Yellow (Yellow) Urine Clarity Clear (Clear) Urine pH 7.0 (5.0-8.0) pH Units Ur Specific [place] 1.015 (1.010-1.025) Urine Protein Negative (Neg-Trace) mg/dL Urine Glucose (UA) Normal (Normal) mg/dL - ABG Interpretation ABG results: PT/INR, D-dimer PT 19.7 Seconds (9.4-12.1) H 02/17/18 04:58 Consult Discharge Plan - Plan Referrals: Tobin Granaod MD [Primary Care Provider] - Samantha Recinos [Family Provider] -
[2018-03-09] MEDS: ALPRAZolam 0.25 MG TABLET PO PRN (21:18)
--- NOTE | 2018-03-10 11:08 | Internal Med Progress Note ---
Date of Encounter: 03/10/18 Time of Encounter: 11:06 - Assessment and plan (1) SAH (subarachnoid hemorrhage) Current Visit: Yes Status: Acute Assessment and plan: No acute neurological changes noted in exam. Patient continues to improve on her mild weakness to left upper extremity and left leg muscle strength over the last several weeks. LLE currently with +4/5 MS. Patient's dorsiflexion on the left foot has improved greatly since last exam. Patient continues to complain of slight loss of sensation to left anterior leg, which she now describes as a paresthesia type tingling. This is an improvement compared to patient's initial admission exam during which time she said her left leg was numb. Patient continues to progress with physical therapy and is reported to doing well with her recent challenge of ambulating up stairs. Patient had some issues with left foot drop but her ambulation has improved since a brace was fitted. Craniotomy site appears be healing well. We will continue with current medications which include Xarelto which has been approved per neurosurgery while at [facility]. (2) DVT (deep venous thrombosis) Current Visit: Yes Status: Acute Assessment and plan: No acute issues. Left leg remains slightly swollen in comparison to right. Patient continues on anticoagulation. We will continue to mobilize Qualifiers: DVT location: lower extremity Affected thrombotic vein of extremity: popliteal Chronicity: acute Laterality: left Qualified Code(s): I82.432 - Acute embolism and thrombosis of left popliteal vein - Time Spent With Patient less than 15 minutes - Subjective Interval history: Patient appears relaxed and currently denies any acute neurological changes, discomforts or shortness of breath. Patient states that she feels that her strength to the left leg has improved slight, but continues to c/o of decreased sensation to the left lower leg. She describes her sedations of the lower left leg as paresthesia-type tingling which is an improvement from her admission date 1 she stated the leg was numb. Patient reportedly has been progressing well with doing stairs. Patient reportedly has several stairs to enter her home. - Constitutional Vitals: Temp Pulse Resp BP Pulse Ox 97.5 F L 68 16 144/63 97 03/10/18 07:32 03/10/18 07:32 03/10/18 07:32 03/10/18 07:32 03/10/18 07:32 General appearance: Present: cooperative, pleasant, answers questions appropriately - Head Head exam: Present: atraumatic, normocephalic - Eye Eye exam: Present: PERRL, conjuntiva pink, sclera anicteric Pupils: Present: PERRL - Neck Neck exam general surgery: Present: supple, trachea midline. Absent: lymphadenopathy - Respiratory Respiratory exam: Present: CTAB. Absent: accessory muscle use, rales, rhonchi, wheezes - Cardiovascular Cardiovascular exam: Present: RRR, +S1, +S2. Absent: diastolic murmur, gallop, rubs, systolic murmur - GI/Abdominal GI/Abdominal exam: Present: normal bowel sounds, soft, no peritoneal signs. Absent: distended, tenderness - Extremities Exam Extremities exam: Present: warm, radial pulses palpable and symmetrical. Absent : calf tenderness, cyanotic, pedal edema - Neurological Exam Neurological exam: Present: CN II-XII intact, oriented X3. Absent: pronater drift, facial droop, speech deficit Additional comments: Patient continues to show a very slight left hemiparesis with left extremities at +4/5. Continues to have slight left increased dorsiflexion, which is also +4 /5 - Skin Skin exam: Present: dry, intact Internal Medicine: Result - Labs CBC & Chem 7: 03/09/18 05:30 03/09/18 05:30 - ABG Interpretation ABG results: PT/INR, D-dimer PT 19.7 Seconds (9.4-12.1) H 02/17/18 04:58 Consult Discharge Plan - Plan Referrals: Tobin Granado MD [Primary Care Provider] - Samantha Recinos [Family Provider] -
[2018-03-10] MEDS: ALPRAZolam 0.25 MG TABLET PO PRN (21:53)
[2018-03-10] MEDS: *HR* Rivaroxaban 10 MG TABLET PO SCH (23:31)
--- NOTE | 2018-03-11 08:38 | Internal Med Progress Note ---
Date of Encounter: 03/11/18 Time of Encounter: 08:36 - Assessment and plan (1) SAH (subarachnoid hemorrhage) Current Visit: Yes Status: Acute Assessment and plan: getting rehab , her foot drop is getting better and she is able to walk with AFO , no other issues at the present time Continue to monitor and continue rehab (2) DVT (deep venous thrombosis) Current Visit: Yes Status: Acute Assessment and plan: on oral anticoagulation , DVT was in her left leg . stable h/h stable Qualifiers: DVT location: lower extremity Affected thrombotic vein of extremity: popliteal Chronicity: acute Laterality: left Qualified Code(s): I82.432 - Acute embolism and thrombosis of left popliteal vein (3) Neurogenic bladder Current Visit: Yes Status: Acute Assessment and plan: conitnue to complains of burning urine . Her UA culture grew two different organism , smaller colonies . Seems more like contamination , repeat UA culture again .Empiric for 5 days Cipro since complains of buring urine and UA was positive for Nitrates - Subjective Interval history: seen as cross coverage. complains of burning of urination still no blood no fever or chill no chest pain or increase in her weakness , strength on left side getting better - Constitutional Vitals: Temp Pulse Resp BP Pulse Ox 97.3 F L 71 18 155/53 98 03/11/18 07:22 03/11/18 07:22 03/11/18 07:22 03/11/18 07:22 03/11/18 07:22 General appearance: Present: cooperative, A&O X 3, pleasant, answers questions appropriately - Head Head exam: Present: atraumatic - Eye Eye exam: Present: EOMI, PERRL Pupils: Present: PERRL - Neck Neck exam general surgery: Present: supple. Absent: tenderness, nuchal rigidity - Respiratory Respiratory exam: Present: CTAB. Absent: respiratory distress, rhonchi, stridor , wheezes, tachypnea - Cardiovascular Cardiovascular exam: Present: RRR, +S1, +S2. Absent: diastolic murmur, irregular rhythm, JVD, systolic murmur - GI/Abdominal GI/Abdominal exam: Present: normal bowel sounds, soft. Absent: distended, firm , guarding, rebound, rigid - Extremities Exam Extremities exam: Absent: pedal edema, tenderness Additional comments: drop foot left side - Neurological Exam Neurological exam: Present: alert, oriented X3 Additional comments: left side weakness , able to walk with AFO left side drop foot Cranial nerves grossly intact Internal Medicine: Result - Labs CBC & Chem 7: 03/09/18 05:30 03/09/18 05:30 Labs: Urine 03/09/18 Range/Units 09:03 Urine Color Yellow (Yellow) Urine Clarity Clear (Clear) Urine pH 7.0 (5.0-8.0) pH Units Ur Specific [place] 1.015 (1.010-1.025) Urine Protein Negative (Neg-Trace) mg/dL Urine Glucose (UA) Normal (Normal) mg/dL - ABG Interpretation ABG results: PT/INR, D-dimer PT 19.7 Seconds (9.4-12.1) H 02/17/18 04:58 Consult Discharge Plan - Plan Referrals: Tobin Granado MD [Primary Care Provider] - Samantha Recinos [Family Provider] -
[2018-03-11 10:20] LABS: Bilirubin,Urine Negative (Negative); Blood,Urine Small (Negative); Clarity,Urine Cloudy (Clear); Color,Urine Yellow (Yellow); Glucose,Urine (UA) Normal (Normal); Ketones,Urine Negative (Negative); Leukocyte Esterase,Urine Large (Negative); Nitrite,Urine Positive (Negative); Protein,Urine Negative (Neg-Trace); Specific Gravity,Urine 1.025 (1.010-1.025); Urobilinogen,Urine Normal (Normal)
[2018-03-11 10:28] LABS: Bacteria,Urine Many per hpf (None-Few); Squamous Epithelial Cell,Urine Moderate per lpf (None-Few); WBC,Urine TNTC per hpf (0-3)
[2018-03-11] MEDS: *HR* Rivaroxaban 10 MG TABLET PO SCH (17:12)
--- NOTE | 2018-03-12 09:02 | Internal Med Progress Note ---
Date of Encounter: 03/12/18 Time of Encounter: 09:00 - Assessment and plan (1) SAH (subarachnoid hemorrhage) Current Visit: Yes Status: Acute Assessment and plan: stable getting PT no new issues or neurological deficit some what inappropriate attention no new change (2) DVT (deep venous thrombosis) Current Visit: Yes Status: Acute Assessment and plan: stable on oral meds no acute issues no SOB Qualifiers: DVT location: lower extremity Affected thrombotic vein of extremity: popliteal Chronicity: acute Laterality: left Qualified Code(s): I82.432 - Acute embolism and thrombosis of left popliteal vein (3) Neurogenic bladder Current Visit: Yes Status: Acute Assessment and plan: A repeat UA has been requested as the previous one colony were less then 10K and also had two different organism . however her previous infection was also E coli but the new culture seems to be resistant to cipro so switch it to Nitrofuriton which is sensitivity to both organisms . followup on repeat UA pending . clinically stable - Subjective Interval history: seen as cross coverage. still complains of some burning urine however feels little better no other complains . Eating ehr meals well no chest pain no increase in weakness . - Constitutional Vitals: Temp Pulse Resp BP Pulse Ox 98.2 F 73 16 136/84 96 03/12/18 07:59 03/12/18 07:59 03/12/18 07:59 03/12/18 07:59 03/12/18 07:59 General appearance: Present: cooperative, A&O X 3, pleasant, answers questions appropriately - Head Head exam: Present: atraumatic - Eye Eye exam: Present: EOMI, PERRL Pupils: Present: PERRL - Neck Neck exam general surgery: Present: supple. Absent: tenderness, nuchal rigidity , thyromegaly - Respiratory Respiratory exam: Present: CTAB. Absent: respiratory distress, rhonchi, stridor , wheezes, tachypnea - Cardiovascular Cardiovascular exam: Present: RRR, +S1, +S2. Absent: irregular rhythm, JVD - GI/Abdominal GI/Abdominal exam: Present: normal bowel sounds, soft. Absent: distended, firm , guarding, rebound, rigid - Extremities Exam Extremities exam: Absent: pedal edema, tenderness - Neurological Exam Neurological exam: Present: alert, oriented X3, no focal deficits. Absent: facial droop, speech deficit Additional comments: she pierce some decrease attention , continued to eat while i was examinating her , she was able to movers all her limbs without any weakness noted . She does have a drop foot on one side Internal Medicine: Result - Labs CBC & Chem 7: 03/09/18 05:30 03/09/18 05:30 Labs: Urine 03/11/18 Range/Units 09:30 Urine Color Yellow (Yellow) Urine Clarity Cloudy A (Clear) Urine pH 6.0 (5.0-8.0) pH Units Ur Specific [place] 1.025 (1.010-1.025) Urine Protein Negative (Neg-Trace) mg/dL Urine Glucose (UA) Normal (Normal) mg/dL - ABG Interpretation ABG results: PT/INR, D-dimer PT 19.7 Seconds (9.4-12.1) H 02/17/18 04:58 Consult Discharge Plan - Plan Referrals: Tobin Granado MD [Primary Care Provider] - Samantha Recinos [Family Provider] -
[2018-03-12] MEDS: *HR* Rivaroxaban 10 MG TABLET PO SCH (16:53)
[2018-03-13 06:27] LABS: Basophils % 0.5 %; Eosinophils % 0.6 %; Hematocrit 36.4 % (35.3-44.9); Hemoglobin 11.7 g/dL (11.5-15.4); Immature Granulocytes % 0.8 % (0-4); Lymphocytes # 1.7 K/mcL (0.6-4.6); Mean Corpuscular HGB Conc 32.1 g/dL (31.6-35.5); Mean Corpuscular Hemoglobin 28.9 pg (28.0-33.3); Mean Corpuscular Volume 89.9 fL (83.0-100.0); Mean Platelet Volume 8.2 fL (9.4-12.4); Monocytes # 0.4 K/mcL (0.0-1.3); Monocytes % 6.5 %; Neutrophils # 3.9 K/mcL (1.6-8.9); Platelet Count 205 K/mcL (140-400); Red Blood Count 4.05 M/mcL (3.82-4.97); Red Cell Distribution Width 14.3 % (11.5-14.5); Segmented Neutrophils % 63.6 %
[2018-03-13 06:46] LABS: BUN/Creatinine Ratio 13 (6-26); Blood Urea Nitrogen 8 mg/dL (6-20); Calcium 9.4 mg/dL (8.6-10.3); Carbon Dioxide 27 mEq/L (23-29); Chloride 104 mEq/L (98-107); Glucose 102 mg/dL (70-105); Osmolality,Calculated 281 (280-300); Potassium 3.9 mEq/L (3.5-5.1); Sodium 136 mEq/L (136-145); eGFR For Non-African Americans > 60 (> 60)
[2018-03-13] MEDS: ALPRAZolam 0.25 MG TABLET PO PRN ×2 (08:19→20:01)
[2018-03-13] MEDS ORDERED: *HR* HYDROcodone/Acet 5/325 mg TABLET PO PRN (09:57)
--- NOTE | 2018-03-13 10:37 | Internal Med Progress Note ---
Date of Encounter: 03/13/18 Time of Encounter: 10:34 - Assessment and plan (1) SAH (subarachnoid hemorrhage) Current Visit: Yes Status: Acute Assessment and plan: No acute neurological changes noted in exam. Patient continues to improve on her mild weakness to left upper extremity and left leg muscle strength over the last several weeks. LLE currently with +4/5 MS. Patient's dorsiflexion on the left foot has improved greatly since last exam, but remains 4/5. Patient continues to complain of slight loss of sensation to left anterior leg, which mostly is to start sensation. This continues to improve when compared to patient's initial admission exam during which time she said her left leg was numb. Patient continues to progress with physical therapy and is reported to doing well Patient had some issues with slight left foot drop but her ambulation has improved since a brace was fitted. Craniotomy site appears be healing well. We will continue with current medications which include Xarelto which has been approved per neurosurgery while at [facility]. (2) DVT (deep venous thrombosis) Current Visit: Yes Status: Acute Assessment and plan: No acute issues. Left leg remains slightly swollen in comparison to right. Patient continues on anticoagulation. We will continue to mobilize Qualifiers: DVT location: lower extremity Affected thrombotic vein of extremity: popliteal Chronicity: acute Laterality: left Qualified Code(s): I82.432 - Acute embolism and thrombosis of left popliteal vein - Time Spent With Patient less than 15 minutes - Subjective Interval history: Patient appears relaxed, but complains of slight increase in pain to her lower back, which she states may be due to her decreased mobility. Patient denies any injury or fall. Patient states that she feels her strength on her left side has been improving. Patient denies any acute neurological deficits since her stay at this facility. Denies any other discomforts or shortness of breath. - Constitutional Vitals: Temp Pulse Resp BP Pulse Ox 97.9 F 70 16 134/71 98 03/13/18 06:55 03/13/18 06:55 03/13/18 06:55 03/13/18 06:55 03/13/18 06:55 General appearance: Present: cooperative, A&O X 3, pleasant, answers questions appropriately - Head Head exam: Present: atraumatic, normocephalic - Eye Eye exam: Present: PERRL, conjuntiva pink, sclera anicteric Pupils: Present: PERRL - Neck Neck exam general surgery: Present: supple, trachea midline. Absent: lymphadenopathy - Respiratory Respiratory exam: Present: CTAB. Absent: accessory muscle use, rales, rhonchi, wheezes - Cardiovascular Cardiovascular exam: Present: RRR, +S1, +S2. Absent: diastolic murmur, gallop, rubs, systolic murmur - GI/Abdominal GI/Abdominal exam: Present: normal bowel sounds, soft, no peritoneal signs. Absent: distended, tenderness - Extremities Exam Extremities exam: Present: warm, radial pulses palpable and symmetrical. Absent : calf tenderness, cyanotic, pedal edema - Back Exam Additional comments: Patient's lower back lumbosacral area appears slightly reddened. No open wound noted. No deformity or bruising. - Neurological Exam Neurological exam: Present: CN II-XII intact, oriented X3. Absent: pronater drift, facial droop, speech deficit Additional comments: Patient continues to have very slight left hemiparesis with left extremities having a muscle strength +4/5 and right extremities with muscle strength of 5/ 5. Patient's left dorsiflexion shows a 4/5. Patient complaints of continued decreased sensation to left lower extremity, notably mostly with sharp sensation. - Skin Skin exam: Present: dry, intact Internal Medicine: Result - Labs CBC & Chem 7: 03/13/18 06:17 03/13/18 06:17 Labs: Short CBC 03/13/18 Range/Units 06:17 WBC 6.2 (4.3-11.1) K/mcL Hgb 11.7 (11.5-15.4) g/dL Hct 36.4 (35.3-44.9) % Plt Count 205 (140-400) K/mcL Neutrophils # 3.9 (1.6-8.9) K/mcL BMP 03/13/18 06:17 Sodium 136 Potassium 3.9 Chloride 104 Carbon Dioxide 27 BUN 8 Creatinine 0.64 Glucose 102 Calcium 9.4 - ABG Interpretation ABG results: PT/INR, D-dimer PT 19.7 Seconds (9.4-12.1) H 02/17/18 04:58 Consult Discharge Plan - Plan Referrals: Tobin Granado MD [Primary Care Provider] - Samantha Recinos [Family Provider] -
[2018-03-13] MEDS: *HR* Rivaroxaban 10 MG TABLET PO SCH (17:38)
[2018-03-14] MEDS: ALPRAZolam 0.25 MG TABLET PO PRN ×2 (08:17→19:45)
--- NOTE | 2018-03-14 09:23 | Internal Med Progress Note ---
Date of Encounter: 03/14/18 Time of Encounter: 09:21 - Assessment and plan (1) SAH (subarachnoid hemorrhage) Current Visit: Yes Status: Acute Assessment and plan: No new neuro deficits. Continue PT and OT. Will follow progress. Continues to have slight left upper extremity weakness and left lower extremity weakness, continues to make improvements. Follow up with neurologist as scheduled. (2) Anxiety and depression Current Visit: Yes Status: Chronic Assessment and plan: Stable. Continue current medication. Will monitor. (3) UTI (urinary tract infection) Current Visit: Yes Status: Acute Assessment and plan: improving. continue macrobid Qualifiers: Urinary tract infection type: site unspecified Hematuria presence: without hematuria Qualified Code(s): N39.0 - Urinary tract infection, site not specified - Time Spent With Patient less than 15 minutes - Subjective Interval history: Participating with therapy. on atb for UTI, states sypmtoms with urgency are improving. Denies any issues including pain, shortness of breath, chest pain, headache, fever, chills, nausea vomiting and diarrhea. maintaining appetite and hydration. bowels moving as normal. - Constitutional Vitals: Temp Pulse Resp BP Pulse Ox 98.0 F 70 16 153/85 96 03/14/18 06:31 03/14/18 06:31 03/14/18 06:31 03/14/18 06:31 03/14/18 06:31 General appearance: Present: cooperative, A&O X 3, pleasant, answers questions appropriately - Head Head exam: Present: atraumatic, normocephalic - Eye Eye exam: Present: PERRL, conjuntiva pink, sclera anicteric Pupils: Present: PERRL - Neck Neck exam general surgery: Present: supple, trachea midline. Absent: lymphadenopathy - Respiratory Respiratory exam: Present: CTAB. Absent: accessory muscle use, rales, rhonchi, wheezes - Cardiovascular Cardiovascular exam: Present: RRR, +S1, +S2. Absent: diastolic murmur, gallop, rubs, systolic murmur - GI/Abdominal GI/Abdominal exam: Present: normal bowel sounds, soft, no peritoneal signs. Absent: distended, tenderness - Extremities Exam Extremities exam: Present: warm, radial pulses palpable and symmetrical. Absent : calf tenderness, cyanotic, pedal edema Additional comments: LLE strength 4/5 - Neurological Exam Neurological exam: Present: CN II-XII intact, oriented X3, no focal deficits. Absent: pronater drift, facial droop, speech deficit - Skin Skin exam: Present: dry, intact Internal Medicine: Result - Labs CBC & Chem 7: 03/13/18 06:17 03/13/18 06:17 - ABG Interpretation ABG results: PT/INR, D-dimer PT 19.7 Seconds (9.4-12.1) H 02/17/18 04:58 Consult Discharge Plan - Plan Referrals: Tobin Granado MD [Primary Care Provider] - Samantha Recinos [Family Provider] -
[2018-03-14] MEDS: *HR* Rivaroxaban 10 MG TABLET PO SCH (17:36)
--- NOTE | 2018-03-15 11:33 | Internal Med Progress Note ---
Date of Encounter: 03/15/18 Time of Encounter: 11:31 - Assessment and plan (1) SAH (subarachnoid hemorrhage) Current Visit: Yes Status: Acute Assessment and plan: No new neuro deficits. Continue PT and OT. Will follow progress. Continues to have slight left upper extremity weakness and left lower extremity weakness, continues to make improvements. Follow up with neurologist as scheduled. (2) Anxiety and depression Current Visit: Yes Status: Chronic Assessment and plan: Stable. Continue current medication. Will monitor. (3) UTI (urinary tract infection) Current Visit: Yes Status: Acute Assessment and plan: improving. continue macrobid Qualifiers: Urinary tract infection type: site unspecified Hematuria presence: without hematuria Qualified Code(s): N39.0 - Urinary tract infection, site not specified - Time Spent With Patient less than 15 minutes - Subjective Interval history: Participating with therapy. ambulating in hallway with therapy with walker. on atb for UTI, states sypmtoms with urgency are improving but continues to be incontinent of bladder. Denies any issues including pain, shortness of breath, chest pain, headache, fever, chills, nausea vomiting and diarrhea. maintaining appetite and hydration. bowels moving as normal. - Constitutional Vitals: Temp Pulse Resp BP Pulse Ox 97.5 F L 99 14 142/72 95 03/14/18 18:51 03/14/18 18:51 03/14/18 18:51 03/14/18 18:51 03/14/18 18:51 General appearance: Present: cooperative, A&O X 3, pleasant, answers questions appropriately - Head Head exam: Present: atraumatic, normocephalic - Eye Eye exam: Present: PERRL, conjuntiva pink, sclera anicteric Pupils: Present: PERRL - Neck Neck exam general surgery: Present: supple, trachea midline. Absent: lymphadenopathy - Respiratory Respiratory exam: Present: CTAB. Absent: accessory muscle use, rales, rhonchi, wheezes - Cardiovascular Cardiovascular exam: Present: RRR, +S1, +S2. Absent: diastolic murmur, gallop, rubs, systolic murmur - GI/Abdominal GI/Abdominal exam: Present: normal bowel sounds, soft, no peritoneal signs. Absent: distended, tenderness - Extremities Exam Extremities exam: Present: warm, radial pulses palpable and symmetrical. Absent : calf tenderness, cyanotic, pedal edema Additional comments: slight nonpitting edema in left BLE. - Neurological Exam Neurological exam: Present: CN II-XII intact, oriented X3, no focal deficits. Absent: pronater drift, facial droop, speech deficit - Skin Skin exam: Present: dry, intact Internal Medicine: Result - Labs CBC & Chem 7: 03/13/18 06:17 03/13/18 06:17 - ABG Interpretation ABG results: PT/INR, D-dimer PT 19.7 Seconds (9.4-12.1) H 02/17/18 04:58 Consult Discharge Plan - Plan Referrals: Tobin Granado MD [Primary Care Provider] - Samantha Recinos [Family Provider] -
[2018-03-15] MEDS: *HR* Rivaroxaban 10 MG TABLET PO SCH (16:56)
[2018-03-15] MEDS: Nitrofurantoin (BID) 100 MG CAPSULE PO SCH (16:56)
[2018-03-15] MEDS: ALPRAZolam 0.25 MG TABLET PO PRN (20:54)
[2018-03-16] MEDS: Nitrofurantoin (BID) 100 MG CAPSULE PO SCH ×2 (08:24→17:18)
[2018-03-16] MEDS: ALPRAZolam 0.25 MG TABLET PO PRN (08:24)
--- NOTE | 2018-03-16 11:50 | Internal Med Progress Note ---
Date of Encounter: 03/16/18 Time of Encounter: 11:48 - Assessment and plan (1) SAH (subarachnoid hemorrhage) Current Visit: Yes Status: Acute Assessment and plan: No acute neurological changes noted in exam. Patient continues to improve on her mild weakness to left upper extremity and left leg muscle strength over the last several weeks. LLE currently with +4/5 MS. Patient's dorsiflexion on the left foot has improved greatly since last exam, but remains 4/5. Patient continues to complain of slight loss of sensation to left anterior leg, which mostly is to sharp sensation. This continues to improve when compared to patient's initial admission exam during which time she said her left leg was numb. Patient continues to progress with physical therapy and is reported to doing well Patient had some issues with slight left foot drop but her ambulation has improved since a brace was fitted. Craniotomy site appears be healing well. We will continue with current medications which include Xarelto which has been approved per neurosurgery while at [facility]. (2) DVT (deep venous thrombosis) Current Visit: Yes Status: Acute Assessment and plan: No acute issues. Left leg remains slightly swollen in comparison to right. Patient continues on anticoagulation. We will continue to mobilize Qualifiers: DVT location: lower extremity Affected thrombotic vein of extremity: popliteal Chronicity: acute Laterality: left Qualified Code(s): I82.432 - Acute embolism and thrombosis of left popliteal vein - Time Spent With Patient less than 15 minutes - Subjective Interval history: Patient appears relaxed. Patient states that she feels her strength on her left side has been improving well. Patient denies any acute neurological deficits since her stay at this facility. Denies any other discomforts or shortness of breath. - Constitutional Vitals: Temp Pulse Resp BP Pulse Ox 98.5 F 73 18 130/65 96 03/16/18 07:18 03/16/18 07:18 03/16/18 07:18 03/16/18 07:18 03/16/18 07:18 General appearance: Present: cooperative, A&O X 3, pleasant, answers questions appropriately - Head Head exam: Present: atraumatic, normocephalic - Eye Eye exam: Present: PERRL, conjuntiva pink, sclera anicteric Pupils: Present: PERRL - Neck Neck exam general surgery: Present: supple, trachea midline. Absent: lymphadenopathy - Respiratory Respiratory exam: Present: CTAB. Absent: accessory muscle use, rales, rhonchi, wheezes - Cardiovascular Cardiovascular exam: Present: RRR, +S1, +S2. Absent: diastolic murmur, gallop, rubs, systolic murmur - GI/Abdominal GI/Abdominal exam: Present: normal bowel sounds, soft, no peritoneal signs. Absent: distended, tenderness - Extremities Exam Extremities exam: Present: warm, radial pulses palpable and symmetrical. Absent : calf tenderness, cyanotic, pedal edema - Neurological Exam Neurological exam: Present: CN II-XII intact, oriented X3. Absent: pronater drift, facial droop, speech deficit Additional comments: Patient continues to have slight left hemiparesis with +4/5 MS to LE and RE with 5/5. Continued dorsiflexion of 4/5 on left, requiring a brace for ambulation. No other focal deficits noted in exam. - Skin Skin exam: Present: dry, intact Internal Medicine: Result - Labs CBC & Chem 7: 03/13/18 06:17 03/13/18 06:17 - ABG Interpretation ABG results: PT/INR, D-dimer PT 19.7 Seconds (9.4-12.1) H 02/17/18 04:58 Consult Discharge Plan - Plan Referrals: Tobin Granado MD [Primary Care Provider] - Samantha Recinos [Family Provider] -
[2018-03-16] MEDS: *HR* Rivaroxaban 10 MG TABLET PO SCH (17:18)
[2018-03-17] MEDS: Nitrofurantoin (BID) 100 MG CAPSULE PO SCH ×2 (07:57→18:56)
--- NOTE | 2018-03-17 12:03 | Internal Med Progress Note ---
Date of Encounter: 03/17/18 Time of Encounter: 12:01 - Assessment and plan (1) SAH (subarachnoid hemorrhage) Current Visit: Yes Status: Acute Assessment and plan: No acute neurological changes noted in exam and patient continues to progress with physical therapy. No changes noted in exam over the past several days.. Patient continues to improve on her mild weakness to left upper extremity and left leg muscle strength over the last several weeks. LLE currently with +4/5 MS. Patient's dorsiflexion on the left foot has improved greatly since last exam, but remains 4/5. Patient continues to complain of slight loss of sensation to left anterior leg, which mostly is to sharp sensation. This continues to improve when compared to patient's initial admission exam during which time she said her left leg was numb. Patient continues to progress with physical therapy and is reported to doing well Patient had some issues with slight left foot drop but her ambulation has improved since a brace was fitted. Craniotomy site appears be healing well. We will continue with current medications which include Xarelto which has been approved per neurosurgery while at [facility]. (2) DVT (deep venous thrombosis) Current Visit: Yes Status: Acute Assessment and plan: No acute issues. Left leg remains slightly swollen in comparison to right. Patient continues on anticoagulation. We will continue to mobilize Qualifiers: DVT location: lower extremity Affected thrombotic vein of extremity: popliteal Chronicity: acute Laterality: left Qualified Code(s): I82.432 - Acute embolism and thrombosis of left popliteal vein - Time Spent With Patient less than 15 minutes - Subjective Interval history: Patient appears relaxed. Patient states that she feels her strength on her left side has been improving well. Patient denies any acute neurological deficits since her stay at this facility. Denies any other discomforts or shortness of breath. - Constitutional Vitals: Temp Pulse Resp BP Pulse Ox 97.4 F L 70 17 130/84 97 03/17/18 07:12 03/17/18 07:12 03/17/18 07:12 03/17/18 07:12 03/17/18 07:12 General appearance: Present: cooperative, A&O X 3, pleasant, answers questions appropriately - Head Head exam: Present: atraumatic, normocephalic - Eye Eye exam: Present: PERRL, conjuntiva pink, sclera anicteric Pupils: Present: PERRL - Neck Neck exam general surgery: Present: supple, trachea midline. Absent: lymphadenopathy - Respiratory Respiratory exam: Present: CTAB. Absent: accessory muscle use, rales, rhonchi, wheezes - Cardiovascular Cardiovascular exam: Present: RRR, +S1, +S2. Absent: diastolic murmur, gallop, rubs, systolic murmur - GI/Abdominal GI/Abdominal exam: Present: normal bowel sounds, soft, no peritoneal signs. Absent: distended, tenderness - Extremities Exam Extremities exam: Present: warm, radial pulses palpable and symmetrical. Absent : calf tenderness, cyanotic, pedal edema - Neurological Exam Neurological exam: Present: CN II-XII intact, oriented X3, no focal deficits. Absent: pronater drift, facial droop, speech deficit Additional comments: Patient continues to have very slight left hemiparesis. Left extremity muscle strength at 4+/5 and patient continues to have left dorsiflexion weakness with muscle strength of 4/5. Right extremities muscle strength is at 5/5. Patient requiring brace to left foot for ambulation due to foot drop. Right scalp craniotomy surgical incisions are well-healed. - Skin Skin exam: Present: dry, intact Internal Medicine: Result - Labs CBC & Chem 7: 03/13/18 06:17 03/13/18 06:17 - ABG Interpretation ABG results: PT/INR, D-dimer PT 19.7 Seconds (9.4-12.1) H 02/17/18 04:58 Consult Discharge Plan - Plan Referrals: Tobin Granado MD [Primary Care Provider] - Samantha Recinos [Family Provider] -
[2018-03-17] MEDS: *HR* Rivaroxaban 10 MG TABLET PO SCH (18:56)
[2018-03-18] MEDS: Nitrofurantoin (BID) 100 MG CAPSULE PO SCH ×2 (08:17→17:03)
[2018-03-18] MEDS: ALPRAZolam 0.25 MG TABLET PO PRN (08:26)
--- NOTE | 2018-03-18 13:07 | Internal Med Progress Note ---
Date of Encounter: 03/18/18 Time of Encounter: 11:10 - Assessment and plan (1) SAH (subarachnoid hemorrhage) Current Visit: Yes Status: Acute Assessment and plan: The patient continues to progress. We will consider a discharge, soon. (2) DVT (deep venous thrombosis) Current Visit: Yes Status: Acute Qualifiers: DVT location: lower extremity Affected thrombotic vein of extremity: popliteal Chronicity: acute Laterality: left Qualified Code(s): I82.432 - Acute embolism and thrombosis of left popliteal vein (3) Anxiety and depression Current Visit: Yes Status: Chronic Assessment and plan: On multiple medications and will continue as planned. She seems to be doing better from my focus standpoint and she is on amantadine. (4) Neurogenic bladder Current Visit: Yes Status: Acute Assessment and plan: She is doing better and we will continue to follow symptomatically and otherwise. No discomfort or incontinence for the last couple of days. - Subjective Interval history: Patient expressed concern that she had a discolored foot at the left dorsum. She states that this was when she woke up this morning and persisted until she put her sock on. After we examined it and removed her sock she had normal coloration and capillary refill and circulation. She had no edema. I encouraged her to report to us if this turns again. She is otherwise without complaint and states that she is going on a community visit for an hour or so today and she is pleased about this. She has no bowel or bladder discomfort or symptoms. Patient has no complaint of chest discomfort, dyspnea, orthopnea, palpitations, nausea or vomiting, constipation or diarrhea, other changes in bowel habits, difficulty with urination, rash or itching, or other new complaints, except as mentioned above. Review of systems is otherwise negative. I discussed management of her care with nursing staff. - Constitutional Vitals: Temp Pulse Resp BP Pulse Ox 97.8 F 84 18 124/77 98 03/18/18 07:15 03/18/18 07:15 03/18/18 07:15 03/18/18 07:15 03/18/18 07:15 General appearance: Present: cooperative, A&O X 3, pleasant, answers questions appropriately Exam: Examination: (Except as mentioned above): General: In no apparent distress. Alert and oriented 3. Nondiaphoretic. Head: Atraumatic and normocephalic. Respiratory: No use of accessory muscles. Lungs are clear throughout. Normal airflow. Cardiovascular: Regular rate and rhythm without murmur appreciated. Abdomen: Bowel sounds are normal. No hepatosplenomegaly mass or tenderness appreciated. Obese and therefore difficult to palpate deeply. Patient is examined upright in chair and this also limits exam. Extremities: No cyanosis clubbing or edema. Of note, there is no edema today. Skin: Warm and non-diaphoretic with no new lesions noted. Internal Medicine: Result - Labs CBC & Chem 7: 03/13/18 06:17 03/13/18 06:17 - ABG Interpretation ABG results: PT/INR, D-dimer PT 19.7 Seconds (9.4-12.1) H 02/17/18 04:58 Consult Discharge Plan - Plan Referrals: Tobin Granado MD [Primary Care Provider] - Samantha Recinos [Family Provider] -
[2018-03-18] MEDS: *HR* Rivaroxaban 10 MG TABLET PO SCH (17:03)
[2018-03-19] MEDS: Nitrofurantoin (BID) 100 MG CAPSULE PO SCH ×2 (08:47→17:12)
--- NOTE | 2018-03-19 12:48 | Internal Med Progress Note ---
Date of Encounter: 03/19/18 Time of Encounter: 12:46 - Assessment and plan (1) SAH (subarachnoid hemorrhage) Current Visit: Yes Status: Acute Assessment and plan: No acute neurological changes noted in exam and patient continues to progress with physical therapy. No changes noted in exam over the past several days.. Patient continues to improve on her mild weakness to left upper extremity and left leg muscle strength over the last several weeks. LLE currently with +4/5 MS. Patient's dorsiflexion on the left foot has improved greatly since last exam, but remains 4/5. Patient continues to complain of slight loss of sensation to left anterior leg, which mostly is to sharp sensation. Patient continues to progress with physical therapy and is reported to doing well Patient had some issues with slight left foot drop but her ambulation has improved since a brace was fitted. Craniotomy site appears be healing well. We will continue with current medications which include Xarelto which has been approved per neurosurgery while at [facility]. (2) DVT (deep venous thrombosis) Current Visit: Yes Status: Acute Assessment and plan: No acute issues. Left leg remains slightly swollen in comparison to right. Patient continues on anticoagulation. We will continue to mobilize Qualifiers: DVT location: lower extremity Affected thrombotic vein of extremity: popliteal Chronicity: acute Laterality: left Qualified Code(s): I82.432 - Acute embolism and thrombosis of left popliteal vein - Time Spent With Patient less than 15 minutes - Subjective Interval history: Patient appears relaxed. Patient states that she feels her strength on her left side has been improving well. Patient denies any acute neurological deficits since her stay at this facility. Denies any other discomforts or shortness of breath. - Constitutional Vitals: Temp Pulse Resp BP Pulse Ox 98.2 F 73 16 105/70 98 03/19/18 07:41 03/19/18 07:41 03/19/18 07:41 03/19/18 07:41 03/19/18 07:41 General appearance: Present: cooperative, A&O X 3, pleasant, answers questions appropriately - Head Head exam: Present: atraumatic, normocephalic - Eye Eye exam: Present: PERRL, conjuntiva pink, sclera anicteric Pupils: Present: PERRL - Neck Neck exam general surgery: Present: supple, trachea midline. Absent: lymphadenopathy - Respiratory Respiratory exam: Present: CTAB. Absent: accessory muscle use, rales, rhonchi, wheezes - Cardiovascular Cardiovascular exam: Present: RRR, +S1, +S2. Absent: diastolic murmur, gallop, rubs, systolic murmur - GI/Abdominal GI/Abdominal exam: Present: normal bowel sounds, soft, no peritoneal signs. Absent: distended, tenderness - Extremities Exam Extremities exam: Present: warm, radial pulses palpable and symmetrical. Absent : calf tenderness, cyanotic, pedal edema - Neurological Exam Neurological exam: Present: CN II-XII intact, oriented X3. Absent: pronater drift, facial droop, speech deficit Additional comments: Patient continues to have very slight left hemiparesis with her LE at +4/5 and her left dorsiflexion at 4/5. RE 5/5, - Skin Skin exam: Present: dry, intact Internal Medicine: Result - Labs CBC & Chem 7: 03/13/18 06:17 03/13/18 06:17 - ABG Interpretation ABG results: PT/INR, D-dimer PT 19.7 Seconds (9.4-12.1) H 02/17/18 04:58 Consult Discharge Plan - Plan Referrals: Tobin Granado MD [Primary Care Provider] - Samantha Recinos [Family Provider] -
[2018-03-19] MEDS: *HR* Rivaroxaban 10 MG TABLET PO SCH (17:12)
[2018-03-20] MEDS: ALPRAZolam 0.25 MG TABLET PO PRN ×2 (05:27→19:35)
[2018-03-20] MEDS: Nitrofurantoin (BID) 100 MG CAPSULE PO SCH ×2 (08:09→18:05)
--- NOTE | 2018-03-20 11:04 | Internal Med Progress Note ---
Date of Encounter: 03/20/18 Time of Encounter: 11:02 - Assessment and plan (1) SAH (subarachnoid hemorrhage) Current Visit: Yes Status: Acute Assessment and plan: No acute neurological changes noted in exam and patient continues to progress with physical therapy. No changes noted in exam over the past several days.. Patient continues to improve on her mild weakness to left upper extremity and left leg muscle strength over the last several weeks. LLE currently with +4/5 MS. Patient's dorsiflexion on the left foot has improved greatly since last exam, but remains 4/5. We will continue with current medications which include Xarelto which has been approved per neurosurgery while at [facility]. (2) DVT (deep venous thrombosis) Current Visit: Yes Status: Acute Assessment and plan: No acute issues. Left leg remains slightly swollen and somewhat reddened after patient has kept leg and a dependent position for several minutes while sitting. She denies any discomforts to left leg. Qualifiers: DVT location: lower extremity Affected thrombotic vein of extremity: popliteal Chronicity: acute Laterality: left Qualified Code(s): I82.432 - Acute embolism and thrombosis of left popliteal vein - Time Spent With Patient less than 15 minutes - Subjective Interval history: Patient appears relaxed. Patient states concern about having her left lower leg and foot be in somewhat discolored after she has been sitting for a period of time. Patient does have a DVT to the left leg. Left lower leg and foot appears slightly reddened, likely secondary to venous congestion. Patient denies any discomforts or paresthesia to the leg or foot. Patient denies any other discomforts or shortness of breath. Patient being prepared for a home safety visit today - Constitutional Vitals: Temp Pulse Resp BP Pulse Ox 97.4 F L 71 15 143/80 96 03/20/18 07:00 03/20/18 07:00 03/20/18 07:00 03/20/18 07:00 03/20/18 07:00 General appearance: Present: cooperative, A&O X 3, pleasant, answers questions appropriately - Head Head exam: Present: atraumatic, normocephalic - Eye Eye exam: Present: PERRL, conjuntiva pink, sclera anicteric Pupils: Present: PERRL - Neck Neck exam general surgery: Present: supple, trachea midline. Absent: lymphadenopathy - Respiratory Respiratory exam: Present: CTAB. Absent: accessory muscle use, rales, rhonchi, wheezes - Cardiovascular Cardiovascular exam: Present: RRR, +S1, +S2. Absent: diastolic murmur, gallop, rubs, systolic murmur - GI/Abdominal GI/Abdominal exam: Present: normal bowel sounds, soft, no peritoneal signs. Absent: distended, tenderness - Extremities Exam Extremities exam: Present: warm, radial pulses palpable and symmetrical. Absent : calf tenderness, cyanotic, pedal edema Additional comments: Left lower leg and foot become somewhat reddened likely secondary to venous congestion. No blanching. Capillary refill less than 3 seconds. No limits to range of motion. No tenderness. No obvious injury or deformity. - Neurological Exam Neurological exam: Present: CN II-XII intact, oriented X3. Absent: pronater drift, facial droop, speech deficit Additional comments: Continues with very slight left hemiparesis. +4/5 muscle strength to left strawberries, but continued 4/5 muscle strength on dorsiflexion on the left. Right extremities have a 5/5 muscle strength. Patient continues to have poor balance. Patient uses a brace to the left foot due to the foot drop - Skin Skin exam: Present: dry, intact Internal Medicine: Result - Labs CBC & Chem 7: 03/13/18 06:17 03/13/18 06:17 - ABG Interpretation ABG results: PT/INR, D-dimer PT 19.7 Seconds (9.4-12.1) H 02/17/18 04:58 Consult Discharge Plan - Plan Referrals: Tobin Granado MD [Primary Care Provider] - Samantha Recinos [Family Provider] -
[2018-03-20] MEDS: *HR* Rivaroxaban 10 MG TABLET PO SCH (18:05)
[2018-03-21] MEDS: Nitrofurantoin (BID) 100 MG CAPSULE PO SCH ×2 (07:43→16:16)
--- NOTE | 2018-03-21 11:45 | Internal Med Progress Note ---
Date of Encounter: 03/21/18 Time of Encounter: 11:43 - Assessment and plan (1) SAH (subarachnoid hemorrhage) Current Visit: Yes Status: Acute Assessment and plan: No new neuro deficits. Continue PT and OT. Will follow progress. Continues to have slight left lower extremity weakness, continues to make improvements. Follow up with neurologist as scheduled. (2) Anxiety and depression Current Visit: Yes Status: Chronic Assessment and plan: Stable. Continue current medication. Will monitor. - Time Spent With Patient less than 15 minutes - Subjective Interval history: Participating with therapy. ambulating in hallway with therapy with walker. Denies any issues including pain, shortness of breath, chest pain, headache, fever, chills, nausea vomiting and diarrhea. maintaining appetite and hydration. bowels moving as normal. - Constitutional Vitals: Temp Pulse Resp BP Pulse Ox 98.0 F 73 16 152/72 96 03/21/18 07:24 03/21/18 07:24 03/21/18 07:24 03/21/18 07:24 03/21/18 07:24 General appearance: Present: cooperative, A&O X 3, pleasant, answers questions appropriately - Head Head exam: Present: atraumatic, normocephalic - Eye Eye exam: Present: PERRL, conjuntiva pink, sclera anicteric Pupils: Present: PERRL - Neck Neck exam general surgery: Present: supple, trachea midline. Absent: lymphadenopathy - Respiratory Respiratory exam: Present: CTAB. Absent: accessory muscle use, rales, rhonchi, wheezes - Cardiovascular Cardiovascular exam: Present: RRR, +S1, +S2. Absent: diastolic murmur, gallop, rubs, systolic murmur - GI/Abdominal GI/Abdominal exam: Present: normal bowel sounds, soft, no peritoneal signs. Absent: distended, tenderness - Extremities Exam Extremities exam: Present: warm, radial pulses palpable and symmetrical. Absent : calf tenderness, cyanotic, pedal edema - Neurological Exam Neurological exam: Present: CN II-XII intact, oriented X3, no focal deficits. Absent: pronater drift, facial droop, speech deficit - Skin Skin exam: Present: dry, intact Internal Medicine: Result - Labs CBC & Chem 7: 03/13/18 06:17 03/13/18 06:17 - ABG Interpretation ABG results: PT/INR, D-dimer PT 19.7 Seconds (9.4-12.1) H 02/17/18 04:58 Consult Discharge Plan - Plan Referrals: Tobin Granado MD [Primary Care Provider] - Samantha Recinos [Family Provider] -
[2018-03-21] MEDS: *HR* Rivaroxaban 10 MG TABLET PO SCH (16:16)
[2018-03-21] MEDS: ALPRAZolam 0.25 MG TABLET PO PRN (20:43)
[2018-03-22] MEDS: Nitrofurantoin (BID) 100 MG CAPSULE PO SCH ×2 (08:32→18:18)
--- NOTE | 2018-03-22 13:14 | Internal Med Progress Note ---
Date of Encounter: 03/22/18 Time of Encounter: 13:13 - Assessment and plan (1) SAH (subarachnoid hemorrhage) Current Visit: Yes Status: Acute Assessment and plan: No new neuro deficits. Continue PT and OT. Will follow progress. Continues to have slight left lower extremity weakness, continues to make improvements. Follow up with neurologist as scheduled. (2) Anxiety and depression Current Visit: Yes Status: Chronic Assessment and plan: Stable. Continue current medication. Will monitor. - Time Spent With Patient less than 15 minutes - Subjective Interval history: Participating with therapy. ambulating in hallway with therapy with walker. Denies any issues including pain, shortness of breath, chest pain, headache, fever, chills, nausea vomiting and diarrhea. maintaining appetite and hydration. bowels moving as normal. working on setting alarm for toileting. planning for discharge on 03/24 - Constitutional Vitals: Temp Pulse Resp BP Pulse Ox 97.9 F 67 16 160/67 98 03/22/18 06:45 03/22/18 06:45 03/22/18 06:45 03/22/18 06:45 03/22/18 06:45 General appearance: Present: cooperative, A&O X 3, pleasant, answers questions appropriately - Head Head exam: Present: atraumatic, normocephalic - Eye Eye exam: Present: PERRL, conjuntiva pink, sclera anicteric Pupils: Present: PERRL - Neck Neck exam general surgery: Present: supple, trachea midline. Absent: lymphadenopathy - Respiratory Respiratory exam: Present: CTAB. Absent: accessory muscle use, rales, rhonchi, wheezes - Cardiovascular Cardiovascular exam: Present: RRR, +S1, +S2. Absent: diastolic murmur, gallop, rubs, systolic murmur - GI/Abdominal GI/Abdominal exam: Present: normal bowel sounds, soft, no peritoneal signs. Absent: distended, tenderness - Extremities Exam Extremities exam: Present: warm, radial pulses palpable and symmetrical. Absent : calf tenderness, cyanotic, pedal edema Additional comments: LLE 4/5 - Neurological Exam Neurological exam: Present: CN II-XII intact, oriented X3, no focal deficits. Absent: pronater drift, facial droop, speech deficit - Skin Skin exam: Present: dry, intact Internal Medicine: Result - Labs CBC & Chem 7: 03/13/18 06:17 03/13/18 06:17 - ABG Interpretation ABG results: PT/INR, D-dimer PT 19.7 Seconds (9.4-12.1) H 02/17/18 04:58 Consult Discharge Plan - Plan Referrals: Tobin Granado MD [Primary Care Provider] - 04/10/18 3:15 pm (follow up with primary care provider) Samantha Recinos [Family Provider] -
--- NOTE | 2018-03-22 14:19 | Psychological Evaluation ---
Date of Encounter: 03/22/18 Time of Encounter: 11:00 History of Present Illness History of present illness: Ms. Karimi is a 52 year old female readmitted to this facility for deconditioning secondary to subarachnoid hemorrhage. Patient was transferred from this facility to [facility] for evaluation and treatment after she was found to have a left leg DVT and was going to require anticoagulation. Patient has returned to this facility after being started on Xerelto. Patient' s neurological exam appears unchanged since her last admission here. SHe reviewed her symptoms prior to hospitalization. Past Medical History - Psychiatric History Additional Psychiatric History: Pt had been Dx with Depression and Anxiety within the last year by her family physician and intitiated medication but no therapy. Home Medications and Allergies ALPRAZolam [Xanax 0.25 MG Tablet] 0.25 mg PO TID PRN 02/08/18 [History] Sennosides/Docusate Sodium [Senna-S Tablet] 1 each PO BID 02/08/18 [History] Venlafaxine [Effexor] 75 mg PO BID 02/08/18 [History] 3 Allergy/AdvReac Type Severity Reaction Status Date / Time bee venom protein (honey bee) AdvReac See Verified 02/08/18 19:48 Comments Sulfa (Sulfonamide AdvReac See Verified 02/08/18 19:48 Antibiotics) Comments Social History - Social History Social History: Pt is single and lives with son. She has a boyfriend of 15 years. Karlae has been 15 years. She also has a daughter who I met today. 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 She is currently on FMLA and applying for SSDI. - Tobacco Use Have you smoked in the last 12 months: Yes (Not since SAH) - Alcohol Use Alcohol Use: none - Drug Use Drug Use: none Cognitive/Emotional Assessment - Cognitive Ability Language Function Ability: No Deficits Noted Level of Alertness: Alert Speech Pattern: Normal rate Additional Findings: Pt is OX3; recall 3/3 words after repetition and 1/3 after 5 min. Digits forward 6 and backward 5. Able to spell WORLD forward and backward; Serial 7's 6 + with no errors. simple math 20-14.45 accurate. Knew pres., previous pres, and gov. Noted to decline attention after 15 min. - she would "zone out" briefly. Pt noted the following changes since SAH: thought process poor; slowed processing; decreased attention/concentration; no multi tasking. Daughter noted impulsivity and disinhibition. - Emotional Status Additional Findings: Affect - flat. Pt stated mood "even". concenred with going home and her level of functioning/expectations. Assessment & Plan - Diagnosis (1) Anxiety and depression - Prognosis Prognosis: Good - Treatment Plan Treatment Plan/Recommendations: Recommend outpatient cognitive behavioral counseling 2X/mo. Goal: develop and train strategies for stabilizing mood and increasing idependent functioning within the home. HOmework: Initiate a daily log/schedule with concerns/problems and initiate deep breathing exercises. Treatment Frequency: 2X/month Next Session Date: 03/29/18 Procedures - Intervention Interventions: Cognitive/Behavioral Therapy - Modality Modality: Psychotherapy 30 minutes - Participants Therapy Participant: Patient - Session Time Session Start Time: 11:00 Session Stop Time: 11:30
[2018-03-22] MEDS: *HR* Rivaroxaban 10 MG TABLET PO SCH (18:18)
[2018-03-23] MEDS: Nitrofurantoin (BID) 100 MG CAPSULE PO SCH ×2 (09:29→18:32)
--- NOTE | 2018-03-23 10:03 | Internal Med Progress Note ---
Date of Encounter: 03/23/18 Time of Encounter: 10:00 - Assessment and plan (1) SAH (subarachnoid hemorrhage) Current Visit: Yes Status: Acute Assessment and plan: No new neuro deficits. Continue PT and OT. Will follow progress. Continues to have slight left lower extremity weakness, continues to make improvements. Follow up with neurologist as scheduled. (2) Anxiety and depression Current Visit: Yes Status: Chronic Assessment and plan: Stable. Continue current medication. Will monitor. - Time Spent With Patient less than 15 minutes - Subjective Interval history: Participating with therapy. ambulating in hallway with therapy with walker. states slept well last night. Denies any issues including pain, shortness of breath, chest pain, headache, fever, chills, nausea vomiting and diarrhea. maintaining appetite and hydration. bowels moving as normal. working on setting alarm for toileting. was inc of bladder through the night. planning for discharge on 03/24 - Constitutional Vitals: Temp Pulse Resp BP Pulse Ox 97.6 F 70 18 137/76 100 03/23/18 07:24 03/23/18 07:24 03/23/18 07:24 03/23/18 07:24 03/23/18 07:24 General appearance: Present: cooperative, A&O X 3, pleasant, answers questions appropriately - Head Head exam: Present: atraumatic, normocephalic - Eye Eye exam: Present: PERRL, conjuntiva pink, sclera anicteric Pupils: Present: PERRL - Neck Neck exam general surgery: Present: supple, trachea midline. Absent: lymphadenopathy - Respiratory Respiratory exam: Present: CTAB. Absent: accessory muscle use, rales, rhonchi, wheezes - Cardiovascular Cardiovascular exam: Present: RRR, +S1, +S2. Absent: diastolic murmur, gallop, rubs, systolic murmur - GI/Abdominal GI/Abdominal exam: Present: normal bowel sounds, soft, no peritoneal signs. Absent: distended, tenderness - Extremities Exam Extremities exam: Present: warm, radial pulses palpable and symmetrical. Absent : calf tenderness, cyanotic, pedal edema Additional comments: slight weakness LLE. AFO brace on left LE. - Neurological Exam Neurological exam: Present: CN II-XII intact, oriented X3, no focal deficits. Absent: pronater drift, facial droop, speech deficit - Skin Skin exam: Present: dry, intact Internal Medicine: Result - Labs CBC & Chem 7: 03/13/18 06:17 03/13/18 06:17 - ABG Interpretation ABG results: PT/INR, D-dimer PT 19.7 Seconds (9.4-12.1) H 02/17/18 04:58 Consult Discharge Plan - Plan Referrals: dr. Harry [Other] - 05/11/18 9:40 am Tobin Granado MD [Primary Care Provider] - 04/10/18 3:15 pm (follow up with primary care provider)
[2018-03-23] MEDS: *HR* Rivaroxaban 10 MG TABLET PO SCH (18:32)
[2018-03-23] MEDS: ALPRAZolam 0.25 MG TABLET PO PRN (20:40)
[2018-03-24] MEDS: Nitrofurantoin (BID) 100 MG CAPSULE PO SCH (08:39)
[2018-03-24 08:45] VITALS: BP 135/85
--- NOTE | 2018-03-24 11:13 | Discharge Summary ---
Date of Encounter: 03/24/18 Time of Encounter: 11:08 - Discharge Diagnosis (1) SAH (subarachnoid hemorrhage) Priority: Primary Status: Acute Comments: Patient was readmitted to this facility after experienced a subarachnoid hemorrhage and a right craniotomy. His neurological status has improved greatly since her presentation during which time she had left hemiparesis. Patient actually had left hemiplegia and decreased sensation to her left lower extremity on presentation, which has progressed with increased strength. Patient continues to have slight weakness on her left dorsiflexion, requiring a brace to be used during ambulation. Patient's decreased sensation has improved also, but continues to have very slight increased sensation to sharp. Patient has progressed well with physical therapy and is being discharged home. Patient will continue with physical therapy and speech therapy as an outpatient at this facility. As recommended to continue follow-up with neurosurgery and her PCP as scheduled. (2) DVT (deep venous thrombosis) Priority: Secondary Status: Acute Comments: Patient presented with a DVT to the left leg that occurred during her admission at an [facility]. Patient was started on several toe with blessings from neurosurgery and continues on her current dose at this time. Patient will continue on current medications after discharge and is recommended to follow-up with neurosurgery and PCP. Qualifiers: DVT location: lower extremity Affected thrombotic vein of extremity: popliteal Chronicity: acute Laterality: left Qualified Code(s): I82.432 - Acute embolism and thrombosis of left popliteal vein Hospital course: Ms. Karimi is a 52 year old female, who readmitted to this facility for deconditioning secondary to subarachnoid hemorrhage. Patient was transferred from this facility to [facility] for evaluation and treatment after she was found to have a left leg DVT and was started on Xerelto. Patient continues to have slight left upper arm paresis, showing 4+/5 muscle strength, which was more prominent proximal. Patient's left leg was on admission to facility was flaccid with 0/5 muscle strength and patient with complainted of a increased sensation to the entire leg, primarily to sharp sensation. Over the next several weeks patient's strength had increased with her left hemiparesis strength increasing. Patient continues to show very slight weakness on the left , but does have a 4/5 muscle strength on her left dorsiflexion, requiring a brace to be used during ambulation. Patient's craniotomy surgical incisions have healed well. Patient continues to progress well with physical therapy and is plan to continue outpatient physical therapy and speech therapy at this facility. Patient is recommended to continue follow-up with her PCP and her scheduled follow-up with neurosurgery. Discharge discussed with: patient Time spent discussing smoking cessation with patient: 3 to 10 minutes - Time Spent with Patient Total time spent providing and/or coordinating discharge services: Less than 30 minutes - Discharge Medications Home Medications: ALPRAZolam [Xanax 0.25 MG Tablet] 0.25 mg PO TID PRN 02/08/18 [History] Sennosides/Docusate Sodium [Senna-S Tablet] 1 each PO BID 02/08/18 [History] Venlafaxine [Effexor] 75 mg PO BID 02/08/18 [History] Allergies/Adverse Reactions: 3 Allergy/AdvReac Type Severity Reaction Status Date / Time bee venom protein (honey bee) AdvReac See Verified 02/08/18 19:48 Comments Sulfa (Sulfonamide AdvReac See Verified 02/08/18 19:48 Antibiotics) Comments Date of admission: 02/16/18 11:59 Primary care physician: Tobin Granado MD Consults: 02/16/18 12:59 Consult to Occupational Therapy [CONS] Routine Comment: Evaluate, develop and implement POC Reason for Consult: eval Does patient have active BEDREST order?: No Is patient medically & hemodynamically stable?: Yes Consult to Physical Therapy [CONS] Routine Comment: Evaluate, develop and implement POC Reason for Consult: eval Does patient have active BEDREST order?: No Is patient medically & hemodynamically stable?: Yes Consult to Recreational Therapy [CONS] Routine Comment: Evaluate, develop and implement POC Consult to Pilot Plant Operator [CONS] Routine Reason for SW Consult: d/c planning Consult to Speech Therapy [CONS] Routine Comment: Evaluate, develop and implement POC Reason for Consult: speech impairment Call Completed: Yes 03/20/18 13:41 Consult to Psychology [CONS] Routine Consulting Provider: Katarina Pillai Reason for Consult: Possible depression; adjustment disorder; attention deficit after stroke Call Completed: No Discharging clinician: Roselyn Mcgowan - Constitutional Vitals: Temp Pulse Resp BP Pulse Ox 97.7 F 77 18 135/85 99 03/24/18 07:00 03/24/18 07:00 03/24/18 07:00 03/24/18 07:00 03/24/18 07:00 General appearance: Present: cooperative, A&O X 3, pleasant, answers questions appropriately - Head Head exam: Present: atraumatic, normocephalic - Eye Eye exam: Present: PERRL, conjuntiva pink, sclera anicteric Pupils: Present: PERRL - Neck Neck exam general surgery: Present: supple, trachea midline. Absent: lymphadenopathy - Respiratory Respiratory exam: Present: CTAB. Absent: accessory muscle use, rales, rhonchi, wheezes - Cardiovascular Cardiovascular exam: Present: RRR, +S1, +S2. Absent: diastolic murmur, gallop, rubs, systolic murmur - GI/Abdominal GI/Abdominal exam: Present: normal bowel sounds, soft, no peritoneal signs. Absent: distended, tenderness - Extremities Exam Extremities exam: Present: warm, radial pulses palpable and symmetrical. Absent : calf tenderness, cyanotic, pedal edema - Neurological Exam Neurological exam: Present: CN II-XII intact, oriented X3. Absent: pronater drift, facial droop, speech deficit Additional comments: Patient shows only a very slight left hemiparesis. Patient does continue to show a 4/5 muscle strength on left dorsiflexion, requiring a brace to be used during ambulation. Patient continues to complain of very slight decreased sensation to left lower leg which continues to be only on sharp sensation. - Skin Skin exam: Present: dry, intact - Patient Status Disposition: Home, Self-Care Condition: Good Functional capacity at discharge: uses cane/walker Overall status at discharge: patient is progressing back to baseline - Discharge Instructions Follow Up With: dr. Harry [Other] - 05/11/18 9:40 am Dallas Garcia MD [Non-Partnered Physician] - (follow up appt needed. ) Tobin Granado MD [Primary Care Provider] - 04/10/18 3:15 pm (follow up with primary care provider) - Diet and Activity Activity: ambulate only with your walker, as per physical therapy Diet: low fat, low cholesterol, low salt diet
== END 2018-03-24 15:14 | disposition home or self-care (01) | DRG 57 ==
LOC: INPGRE 02-16 11:59